=== PATIENT | female | born 1970 | race Caucasian/White ===

== ENCOUNTER 2020-10-10 11:35 | Inpatient (IN) ==
[2020-10-10] MEDS ORDERED: Aspirin 81 MG TAB.CHEW PO ONE (11:43)
[2020-10-10] MEDS ORDERED: *HR* FentaNYL (PF) 100 MCG/2 ML VIAL IVP ONE (11:49)
[2020-10-10] MEDS ORDERED: 0.9 % Sodium Chloride 1,000 ML IVC ONE ×2 (11:49→13:54)
[2020-10-10] MEDS ORDERED: Ondansetron 4 MG/2 ML VIAL IVP ONE (11:49)
[2020-10-10 12:28] LABS: Basophils % 0.2 %; Hematocrit 42.1 % (35.3-44.9); Immature Granulocytes % 2.5 % (0-4); Lymphocytes # 0.4 K/mcL (0.6-4.6); Lymphocytes % 4.6 %; Mean Corpuscular HGB Conc 33.3 g/dL (31.6-35.5); Mean Corpuscular Hemoglobin 31.7 pg (28.0-33.3); Mean Corpuscular Volume 95.5 fL (83.0-100.0); Mean Platelet Volume 9.6 fL (9.4-12.4); Monocytes % 11.6 %; Neutrophils # 6.9 K/mcL (1.6-8.9); Platelet Count 147 K/mcL (140-400); Red Blood Count 4.41 M/mcL (3.82-4.97); Red Cell Distribution Width 13.2 % (11.5-14.5); Segmented Neutrophils % 81.1 %; White Blood Count 8.5 K/mcL (4.3-11.1)
[2020-10-10 12:35] LABS: INR 0.9; Prothrombin Time 10.9 Seconds (9.4-12.1)
[2020-10-10 12:56] LABS: Alanine Aminotransferase 14 Units/L (7-52); Albumin 3.6 g/dL (3.5-5.7); Albumin/Globulin Ratio 1.2 (1.1-2.2); Alkaline Phosphatase 145 Units/L (34-104); Aspartate Amino Transferase 39 Units/L (13-39); BUN/Creatinine Ratio 12 (6-26); Bilirubin,Direct 0.2 mg/dL (0.0-0.2); Bilirubin,Indirect 0.4 mg/dL (0.0-1.0); Bilirubin,Total 0.6 mg/dL (0.3-1.0); Blood Urea Nitrogen 81 mg/dL (6-20); Calcium 7.8 mg/dL (8.6-10.3); Carbon Dioxide 9 mEq/L (23-29); Chloride 95 mEq/L (98-107); Creatine Kinase 47 Units/L (30-223); Glucose 85 mg/dL (70-105); Lipase 84 Units/L (11-82); Osmolality,Calculated 290 (280-300); Potassium 5.4 mEq/L (3.5-5.1); Sodium 128 mEq/L (136-145); Total Protein 6.6 g/dL (6.4-8.9); Troponin I < 0.03 ng/mL (< 0.04); eGFR For African Americans 8 (> 60); eGFR For Non-African Americans 6 (> 60)
[2020-10-10] MEDS ORDERED: Isovue-370 500 ML BOTTLE IVP ONE (13:47)
[2020-10-10] MEDS ORDERED: Vancomycin 1,250 MG/262.5 ML IV.SOLN IVPB STA (13:58)
[2020-10-10] MEDS ORDERED: Piperacillin/Tazobactam 3.375 GM in 0.9 % Sodium Chloride Mini Bag 100 ML IVPB STA (13:58)
[2020-10-10] MEDS ORDERED: *HR* Heparin 5,000 UNIT/ML VIAL IVP PRN ×2 (13:59)
[2020-10-10] MEDS ORDERED: *HR* Heparin 5,000 UNIT/ML VIAL IVP ONE (13:59)
[2020-10-10] MEDS ORDERED: Heparin 25,000UNIT/250ML 1/2NS 25,000 UNIT/250 ML IV.SOLN IVC SCH (14:00)
[2020-10-10] MEDS ORDERED: Vancomycin (wt based) 1,000 MG VIAL IVPB SCH (14:00)
[2020-10-10] MEDS ORDERED: 0.9 % Sodium Chloride 1,000 ML IVC SCH (14:00)
[2020-10-10] MEDS ORDERED: Piperacillin/Tazobactam 3.375 GM in Water for inj. (sterile) 20 ML IVP STA (14:09)
[2020-10-10] MEDS ORDERED: Sodium Bicarbonate 150 MEQ in D5% in Water 1,000 ML IVC SCH ×2 (15:15→21:54)
[2020-10-10 15:19] LABS: Heparin anti-factor XA UFH 0.04 IU/mL (0.30-0.70)
[2020-10-10 15:20] LABS: Prothrombin Time 11.2 Seconds (9.4-12.1)
[2020-10-10] MEDS ORDERED: Naloxone 0.4 MG/ML INJ IVP PRN (16:30)
[2020-10-10 16:59] LABS: Adenovirus Not Detected (Not Detect); Coronavirus 229E Not Detected (Not Detect); Coronavirus HKU1 Not Detected (Not Detect); Coronavirus NL63 Not Detected (Not Detect); Coronavirus OC43 Not Detected (Not Detect); Human Metapneumovirus Not Detected (Not Detect); Human Rhinovirus/Enterovirus Not Detected (Not Detect); Influenza A Subtype 2009 H1 Not Detected (Not Detect)
[2020-10-10 17:00] LABS: Bordetella Pertussis Not Detected (Not Detect); Chlamydophila pneumoniae Not Detected (Not Detect); Influenza B Not Detected (Not Detect); Mycoplasma pneumoniae Not Detected (Not Detect); Parainfluenza Virus 1 Not Detected (Not Detect); Parainfluenza Virus 2 Not Detected (Not Detect); Parainfluenza Virus 3 Not Detected (Not Detect); Parainfluenza Virus 4 Not Detected (Not Detect); Respiratory Syncytial Virus Not Detected (Not Detect)
[2020-10-10 17:03] LABS: SARS-CoV-2 DETECTED (Not Detect)
[2020-10-10] MEDS ORDERED: *HR* HYDROcodone/Acet 5/325 mg TABLET PO PRN (19:41)
[2020-10-10] MEDS ORDERED: *HR* OxyCODONE Immed Rel 5 MG TABLET PO PRN (19:41)
[2020-10-10] MEDS ORDERED: Acetaminophen 325 MG TABLET PO PRN (19:41)
[2020-10-10] MEDS: *HR* Heparin 5,000 UNIT/ML VIAL SQ SCH (20:08)
[2020-10-10] MEDS ORDERED: Ondansetron 4 MG/2 ML VIAL IVP PRN (21:56)
[2020-10-10] MEDS: Dexamethasone Sodium Phos/PF 10 MG/ML VIAL IVP SCH (22:07)
[2020-10-11 00:45] LABS: Immature Granulocytes % 1.9 % (0-4); Lymphocytes % 3.7 %; Mean Corpuscular Hemoglobin 31.8 pg (28.0-33.3); Mean Corpuscular Volume 90.9 fL (83.0-100.0); Mean Platelet Volume 9.6 fL (9.4-12.4); Monocytes % 6.4 %; Platelet Count 145 K/mcL (140-400); Red Blood Count 3.52 M/mcL (3.82-4.97); Red Cell Distribution Width 13.2 % (11.5-14.5); Segmented Neutrophils % 87.7 %
[2020-10-11 00:46] LABS: Basophils % 0.3 %; Lymphocytes # 0.3 K/mcL (0.6-4.6); Monocytes # 0.6 K/mcL (0.0-1.3); Neutrophils # 7.9 K/mcL (1.6-8.9); Nucleated Red Blood Cells 0.3 /100 WBC (0)
[2020-10-11 00:48] LABS: Calcium 6.6 mg/dL (8.6-10.3); Hemoglobin 11.2 g/dL (11.5-15.4); Potassium 5.2 mEq/L (3.5-5.1)
[2020-10-11] MEDS: *HR* OxyCODONE Immed Rel 5 MG TABLET PO PRN ×3 (03:50→20:03)
[2020-10-11] MEDS: *HR* Heparin 5,000 UNIT/ML VIAL SQ SCH ×2 (05:02→18:33)
[2020-10-11] MEDS: Piperacillin/Tazobactam 3.375 GM in 0.9 % Sodium Chloride Mini Bag 100 ML IVPB SCH ×2 (05:03→18:33)
[2020-10-11] MEDS: Sodium Bicarbonate 150 MEQ in D5% in Water 1,000 ML IVC SCH ×2 (05:23→20:04)
[2020-10-11] MEDS: Dexamethasone Sodium Phos/PF 10 MG/ML VIAL IVP SCH (09:15)
[2020-10-11] MEDS ORDERED: 0.9 % Sodium Chloride 250 ML IVC PRN (09:54)
[2020-10-11] MEDS ORDERED: *HR* Heparin 10,000 UNIT/10 ML VIAL IV PRN (09:54)
[2020-10-11] MEDS ORDERED: 0.9 % Sodium Chloride 1,000 ML PRIME SCH (10:00)
[2020-10-11 11:12] LABS: Hepatitis B Surface Antibody < 3.10 mIU/mL
[2020-10-11 11:24] LABS: Hepatitis B Surface Antigen Nonreactive (Nonreactive)
[2020-10-11] MEDS ORDERED: Heparin 1,000 UNITS/500 mL 500 ML ONE (12:51)
[2020-10-11] MEDS ORDERED: Lidocaine/EPI 1:100k 1% 50 ML VIAL ONE (12:51)
[2020-10-11] MEDS ORDERED: *HR* Heparin 5,000 UNIT/ML VIAL ONE (14:27)
[2020-10-11] MEDS: *HR* HYDROcodone/Acet 5/325 mg TABLET PO PRN (14:45)
[2020-10-11] MEDS ORDERED: Acetaminophen/Butalbital/CaffeineTABLET PO PRN (16:54)
[2020-10-11 19:09] LABS: Mean Corpuscular HGB Conc 35.7 g/dL (31.6-35.5); Mean Corpuscular Hemoglobin 31.6 pg (28.0-33.3); Mean Corpuscular Volume 88.6 fL (83.0-100.0); Mean Platelet Volume 9.5 fL (9.4-12.4); Platelet Count 147 K/mcL (140-400); Red Blood Count 3.16 M/mcL (3.82-4.97); Red Cell Distribution Width 12.9 % (11.5-14.5); White Blood Count 9.7 K/mcL (4.3-11.1)
[2020-10-11 19:38] LABS: Lymphocytes # 0.2 K/mcL (0.6-4.6); Monocytes # 0.6 K/mcL (0.0-1.3); Neutrophils # 8.9 K/mcL (1.6-8.9); Platelet Estimate Normal (Normal); Toxic Granulation Present (Not Present)
[2020-10-11] MEDS: rOPINIRole 1 MG TABLET PO SCH (20:03)
[2020-10-11] MEDS: Metoprolol XL (24 HR) Succ 25 MG TAB.ER.24H PO SCH (20:05)
[2020-10-12] MEDS: Ondansetron 4 MG/2 ML VIAL IVP PRN (00:05)
[2020-10-12 02:08] LABS: Basophils # 0.1 K/mcL (0.0-0.2); Basophils % 0.4 %; Hematocrit 32.8 % (35.3-44.9); Hemoglobin 11.4 g/dL (11.5-15.4); Immature Granulocytes % 2.1 % (0-4); Lymphocytes # 0.4 K/mcL (0.6-4.6); Lymphocytes % 3.3 %; Mean Corpuscular HGB Conc 34.8 g/dL (31.6-35.5); Mean Corpuscular Volume 89.1 fL (83.0-100.0); Mean Platelet Volume 9.3 fL (9.4-12.4); Monocytes # 0.5 K/mcL (0.0-1.3); Monocytes % 4.3 %; Platelet Count 151 K/mcL (140-400); Red Blood Count 3.68 M/mcL (3.82-4.97); Segmented Neutrophils % 89.9 %; White Blood Count 11.5 K/mcL (4.3-11.1)
[2020-10-12 02:16] LABS: Neutrophils # 10.3 K/mcL (1.6-8.9)
[2020-10-12 02:55] LABS: Platelet Estimate Normal (Normal)
[2020-10-12] MEDS: *HR* Heparin 5,000 UNIT/ML VIAL SQ SCH ×3 (05:37→23:21)
[2020-10-12] MEDS: Piperacillin/Tazobactam 3.375 GM in 0.9 % Sodium Chloride Mini Bag 100 ML IVPB SCH ×2 (05:37→18:27)
[2020-10-12 07:47] LABS: Calcium 6.9 mg/dL (8.6-10.3); Potassium 3.6 mEq/L (3.5-5.1)
[2020-10-12] MEDS: Dexamethasone Sodium Phos/PF 10 MG/ML VIAL IVP SCH (08:31)
[2020-10-12] MEDS: EXEMESTANE 25 MG PO SCH (08:32)
[2020-10-12] MEDS: Loratadine 10 MG TABLET PO SCH (08:32)
[2020-10-12] MEDS ORDERED: *HR* LORazepam 2 MG/ML VIAL ONE ×2 (10:55→11:16)
[2020-10-12] MEDS: *HR* LORazepam 2 MG/ML VIAL IVP ONE ×2 (11:00→12:58)
[2020-10-12 11:11] LABS: ABG Base Excess 5 mEq/L (-2 to 3); ABG HCO3 30 mEq/L (21-27); ABG Oxygen Saturation 79 % (95-98); ABG PCO2 44 mmHg (35-45); ABG PH 7.44 pH Units (7.32-7.45); ABG PO2 42 mmHg (85-104); ABG TCO2 31 mEq/L (20-26)
[2020-10-12] MEDS ORDERED: *HR* LORazepam 2 MG/ML VIAL IVP ONE (11:15)
[2020-10-12] MEDS ORDERED: Perflutren Lipid Microsphere 1.3 ML in 0.9 % Sodium Chloride 8.7 ML IVP PRN (11:18)
[2020-10-12] MEDS ORDERED: Morphine Sulfate 2 MG/ML SYRINGE IVP ONE (11:23)
[2020-10-12] MEDS ORDERED: Dexamethasone Sodium Phos/PF 10 MG/ML VIAL IVP ONE (11:45)
[2020-10-12] MEDS: Dexmedetomidine HCl 400 MCG/100 ML MLS IVC SCH ×2 (12:00→17:41)
[2020-10-12] MEDS ORDERED: 0.9 % Sodium Chloride 250 ML IVC PRN (13:20)
[2020-10-12] MEDS ORDERED: *HR* Heparin 10,000 UNIT/10 ML VIAL IV PRN (13:20)
[2020-10-12] MEDS: 0.9 % Sodium Chloride 1,000 ML IVC SCH (13:34)
[2020-10-12 13:36] LABS: ABG Base Excess 3 mEq/L (-2 to 3); ABG HCO3 27 mEq/L (21-27); ABG Oxygen Saturation 98 % (95-98); ABG PCO2 41 mmHg (35-45); ABG PH 7.43 pH Units (7.32-7.45); ABG PO2 107 mmHg (85-104); ABG TCO2 28 mEq/L (20-26); Blood Gas Pressure Support 8 cm H2O
[2020-10-12] MEDS: Pantoprazole 40 MG VIAL IVP SCH (13:44)
[2020-10-12] MEDS: Metoprolol XL (24 HR) Succ 25 MG TAB.ER.24H PO SCH (19:11)
[2020-10-12] MEDS: rOPINIRole 1 MG TABLET PO SCH (19:11)
[2020-10-13] MEDS: Dexmedetomidine HCl 400 MCG/100 ML MLS IVC SCH ×2 (02:30→13:39)
[2020-10-13 03:48] LABS: ABG Base Excess 6 mEq/L (-2 to 3); ABG HCO3 29 mEq/L (21-27); ABG Oxygen Saturation 94 % (95-98); ABG PCO2 37 mmHg (35-45); ABG PO2 63 mmHg (85-104); ABG TCO2 31 mEq/L (20-26)
[2020-10-13 03:57] LABS: Hematocrit 29.8 % (35.3-44.9); Hemoglobin 10.3 g/dL (11.5-15.4); Mean Corpuscular HGB Conc 34.6 g/dL (31.6-35.5); Mean Corpuscular Hemoglobin 31.1 pg (28.0-33.3); Platelet Count 175 K/mcL (140-400); Red Blood Count 3.31 M/mcL (3.82-4.97); Red Cell Distribution Width 13.6 % (11.5-14.5); White Blood Count 10.8 K/mcL (4.3-11.1)
[2020-10-13 04:11] LABS: Calcium 8.1 mg/dL (8.6-10.3); Potassium 3.9 mEq/L (3.5-5.1)
[2020-10-13 04:32] LABS: Monocytes # 0.4 K/mcL (0.0-1.3); Neutrophils # 10.4 K/mcL (1.6-8.9); Platelet Estimate Normal (Normal)
[2020-10-13] MEDS: Piperacillin/Tazobactam 3.375 GM in 0.9 % Sodium Chloride Mini Bag 100 ML IVPB SCH ×2 (05:09→17:16)
[2020-10-13] MEDS ORDERED: 0.9 % Sodium Chloride 250 ML IVC PRN (09:16)
[2020-10-13] MEDS ORDERED: *HR* Heparin 10,000 UNIT/10 ML VIAL IV PRN (09:16)
[2020-10-13] MEDS: EXEMESTANE 25 MG PO SCH (10:44)
[2020-10-13] MEDS: Loratadine 10 MG TABLET PO SCH (10:45)
[2020-10-13] MEDS: Pantoprazole 40 MG VIAL IVP SCH (11:01)
[2020-10-13] MEDS: *HR* Heparin 5,000 UNIT/ML VIAL SQ SCH ×3 (11:02→23:44)
[2020-10-13] MEDS: Dexamethasone Sodium Phos/PF 10 MG/ML VIAL IVP SCH (11:02)
[2020-10-13] MEDS: 0.9 % Sodium Chloride 1,000 ML IVC SCH (11:04)
[2020-10-13] MEDS ORDERED: Dextrose Gel 15 GM/37.5 ML TUBE PO PRN ×2 (11:31)
[2020-10-13] MEDS ORDERED: D5% in Water 1,000 ML IVC PRN (11:31)
[2020-10-13] MEDS ORDERED: *HR* Dextrose 50 % in Water (Vial) 50 ML VIAL IVP PRN (11:31)
[2020-10-13] MEDS: Insulin LISPRO 300 UNITS/3 ML VIAL SUBQ SCH ×3 (13:38→23:42)
[2020-10-13] MEDS: Furosemide 40 MG/4 ML VIAL IVP SCH ×3 (13:42→17:16)
[2020-10-13] MEDS: *HR* LORazepam 2 MG/ML VIAL IVP PRN (19:57)
[2020-10-13] MEDS: rOPINIRole 1 MG TABLET PO SCH (20:05)
[2020-10-13] MEDS: Metoprolol XL (24 HR) Succ 25 MG TAB.ER.24H PO SCH (20:05)
[2020-10-14 03:59] LABS: Basophils # 0.1 K/mcL (0.0-0.2); Basophils % 0.9 %; Eosinophils % 0.1 %; Hematocrit 30.3 % (35.3-44.9); Hemoglobin 10.3 g/dL (11.5-15.4); Immature Granulocytes % 7.8 % (0-4); Lymphocytes # 0.3 K/mcL (0.6-4.6); Lymphocytes % 2.4 %; Mean Corpuscular Hemoglobin 31.2 pg (28.0-33.3); Mean Corpuscular Volume 91.8 fL (83.0-100.0); Mean Platelet Volume 9.3 fL (9.4-12.4); Monocytes # 0.8 K/mcL (0.0-1.3); Monocytes % 6.1 %; Neutrophils # 11.1 K/mcL (1.6-8.9); Platelet Count 221 K/mcL (140-400); Red Cell Distribution Width 13.5 % (11.5-14.5); Segmented Neutrophils % 82.7 %; White Blood Count 13.4 K/mcL (4.3-11.1)
[2020-10-14 04:18] LABS: Calcium 8.3 mg/dL (8.6-10.3); Potassium 3.9 mEq/L (3.5-5.1)
[2020-10-14 04:30] LABS: Platelet Estimate Normal (Normal)
[2020-10-14] MEDS: Dexmedetomidine HCl 400 MCG/100 ML MLS IVC SCH ×3 (05:07→22:20)
[2020-10-14] MEDS: Piperacillin/Tazobactam 3.375 GM in 0.9 % Sodium Chloride Mini Bag 100 ML IVPB SCH ×2 (05:53→17:28)
[2020-10-14] MEDS: Insulin LISPRO 300 UNITS/3 ML VIAL SUBQ SCH ×3 (06:03→18:08)
[2020-10-14] MEDS: *HR* Heparin 5,000 UNIT/ML VIAL SQ SCH ×2 (07:33→18:08)
[2020-10-14] MEDS: Furosemide 40 MG/4 ML VIAL IVP SCH ×2 (07:33→12:03)
[2020-10-14] MEDS: Dexamethasone Sodium Phos/PF 10 MG/ML VIAL IVP SCH (07:34)
[2020-10-14] MEDS: Pantoprazole 40 MG VIAL IVP SCH ×2 (07:34→19:38)
[2020-10-14] MEDS: Loratadine 10 MG TABLET PO SCH (07:36)
[2020-10-14] MEDS: EXEMESTANE 25 MG PO SCH (07:36)
[2020-10-14] MEDS: *HR* LORazepam 2 MG/ML VIAL IVP PRN ×2 (08:50→20:47)
[2020-10-14] MEDS ORDERED: 0.9 % Sodium Chloride 250 ML IVC PRN (11:29)
[2020-10-14] MEDS ORDERED: *HR* Heparin 10,000 UNIT/10 ML VIAL IV PRN (11:29)
[2020-10-14 14:39] LABS: Bacteria,Urine Few per hpf (None-Few); Bilirubin,Urine Negative (Negative); Blood,Urine Trace (Negative); Clarity,Urine Clear (Clear); Color,Urine Colorless (Yellow); Glucose,Urine (UA) Normal (Normal); Ketones,Urine Negative (Negative); Leukocyte Esterase,Urine Negative (Negative); Mucus,Urine Few per lpf (None-Few); Nitrite,Urine Negative (Negative); PH,Urine 6.5 pH Units (5.0-8.0); Protein,Urine Trace mg/dL (Neg-Trace); RBC,Urine 0-3 per hpf (0-3); Squamous Epithelial Cell,Urine Few per hpf (None-Few); Urobilinogen,Urine Normal (Normal); WBC,Urine 0-3 per hpf (0-3)
[2020-10-14] MEDS ORDERED: HydrOXYzine 100 MG/2 ML VIAL IM PRN (14:55)
[2020-10-14] MEDS: Albumin 25% 25gram/100mL 25 GM/100 ML IV.SOLN IVPB PRN (15:17)
[2020-10-14] MEDS: MetroNIDAZOLE 500 MG/100 ML 500 MG/100 ML BAG IVPB SCH (17:28)
[2020-10-14 18:30] LABS: Hematocrit 30.6 % (35.3-44.9); Hemoglobin 10.3 g/dL (11.5-15.4)
[2020-10-14] MEDS: Metoprolol XL (24 HR) Succ 25 MG TAB.ER.24H PO SCH (19:41)
[2020-10-14] MEDS: rOPINIRole 1 MG TABLET PO SCH (19:41)
[2020-10-14] MEDS ORDERED: Vancomycin 1 EACH in 0.9 % Sodium Chloride 250 ML IVPB PRN (20:00)
[2020-10-15] MEDS: MetroNIDAZOLE 500 MG/100 ML 500 MG/100 ML BAG IVPB SCH (00:36)
[2020-10-15] MEDS: Insulin LISPRO 300 UNITS/3 ML VIAL SUBQ SCH ×5 (00:36→23:49)
[2020-10-15] MEDS: *HR* Heparin 5,000 UNIT/ML VIAL SQ SCH ×4 (00:36→23:36)
[2020-10-15 03:49] LABS: Hemoglobin 9.8 g/dL (11.5-15.4); Mean Corpuscular HGB Conc 33.8 g/dL (31.6-35.5); Mean Corpuscular Hemoglobin 31.1 pg (28.0-33.3); Mean Corpuscular Volume 92.1 fL (83.0-100.0); Mean Platelet Volume 9.2 fL (9.4-12.4); Platelet Count 269 K/mcL (140-400); Red Blood Count 3.15 M/mcL (3.82-4.97); Red Cell Distribution Width 13.2 % (11.5-14.5); White Blood Count 15.6 K/mcL (4.3-11.1)
[2020-10-15 04:05] LABS: Magnesium 1.7 mg/dL (1.6-2.6); Phosphorous 2.4 mg/dL (2.7-4.5)
[2020-10-15] MEDS: Dexmedetomidine HCl 400 MCG/100 ML MLS IVC SCH ×4 (04:26→23:48)
[2020-10-15 04:29] LABS: ABG Base Excess 2 mEq/L (-2 to 3); ABG HCO3 26 mEq/L (21-27); ABG Oxygen Saturation 95 % (95-98); ABG PCO2 37 mmHg (35-45); ABG PH 7.46 pH Units (7.32-7.45); ABG PO2 72 mmHg (85-104); ABG TCO2 27 mEq/L (20-26); Blood Gas Modality avaps; Blood Gas VT 480 cc
[2020-10-15 05:07] LABS: Calcium 9.1 mg/dL (8.6-10.3); Potassium 3.5 mEq/L (3.5-5.1)
[2020-10-15] MEDS: Piperacillin/Tazobactam 3.375 GM in 0.9 % Sodium Chloride Mini Bag 100 ML IVPB SCH ×2 (05:49→17:50)
[2020-10-15] MEDS: Dexamethasone Sodium Phos/PF 10 MG/ML VIAL IVP SCH (07:59)
[2020-10-15] MEDS: Pantoprazole 40 MG VIAL IVP SCH ×2 (07:59→19:48)
[2020-10-15] MEDS: Cholecalciferol (D-3) 1,000 UNIT (25MCG) TABLET PO SCH (12:07)
[2020-10-15] MEDS: EXEMESTANE 25 MG PO SCH (12:07)
[2020-10-15] MEDS: Loratadine 10 MG TABLET PO SCH (12:07)
[2020-10-15] MEDS: BuPROPion XL (24 HR) 150 MG TABLET PO SCH (16:33)
[2020-10-15] MEDS: Furosemide 40 MG/4 ML VIAL IVP SCH (19:33)
[2020-10-15] MEDS: Metoprolol XL (24 HR) Succ 25 MG TAB.ER.24H PO SCH (19:48)
[2020-10-15] MEDS: rOPINIRole 1 MG TABLET PO SCH (19:48)
[2020-10-15] MEDS: hydrOXYzine pamoate 25 MG CAPSULE PO PRN (21:49)
[2020-10-16 04:05] LABS: Hemoglobin 8.7 g/dL (11.5-15.4); Mean Corpuscular HGB Conc 33.5 g/dL (31.6-35.5); Mean Corpuscular Hemoglobin 31.1 pg (28.0-33.3); Mean Corpuscular Volume 92.9 fL (83.0-100.0); Mean Platelet Volume 9.4 fL (9.4-12.4); Platelet Count 247 K/mcL (140-400); White Blood Count 12.1 K/mcL (4.3-11.1)
[2020-10-16 04:22] LABS: Calcium 7.4 mg/dL (8.6-10.3); Magnesium 1.4 mg/dL (1.6-2.6); Potassium 3.2 mEq/L (3.5-5.1)
[2020-10-16 04:28] LABS: Lymphocytes # 0.7 K/mcL (0.6-4.6); Neutrophils # 10.9 K/mcL (1.6-8.9); Platelet Estimate Normal (Normal); Toxic Granulation Present (Not Present)
[2020-10-16] MEDS: Piperacillin/Tazobactam 3.375 GM in 0.9 % Sodium Chloride Mini Bag 100 ML IVPB SCH ×2 (05:28→17:27)
[2020-10-16] MEDS: Insulin LISPRO 300 UNITS/3 ML VIAL SUBQ SCH ×4 (05:33→23:41)
[2020-10-16] MEDS: Pantoprazole 40 MG VIAL IVP SCH ×2 (05:50→18:10)
[2020-10-16] MEDS: Dexmedetomidine HCl 400 MCG/100 ML MLS IVC SCH ×2 (06:31→15:15)
[2020-10-16] MEDS ORDERED: 0.9 % Sodium Chloride 250 ML IVC PRN (07:32)
[2020-10-16] MEDS ORDERED: *HR* Heparin 10,000 UNIT/10 ML VIAL IV PRN (07:32)
[2020-10-16] MEDS ORDERED: Albumin 25% 25gram/100mL 25 GM/100 ML IV.SOLN ONE (08:07)
[2020-10-16] MEDS: *HR* Heparin 5,000 UNIT/ML VIAL SQ SCH ×3 (08:18→23:19)
[2020-10-16] MEDS: Cholecalciferol (D-3) 1,000 UNIT (25MCG) TABLET PO SCH (08:19)
[2020-10-16] MEDS: Loratadine 10 MG TABLET PO SCH (08:19)
[2020-10-16] MEDS: BuPROPion XL (24 HR) 150 MG TABLET PO SCH (08:19)
[2020-10-16] MEDS: Dexamethasone Sodium Phos/PF 10 MG/ML VIAL IVP SCH (08:25)
[2020-10-16] MEDS: Albumin 25% 25gram/100mL 25 GM/100 ML IV.SOLN IVPB PRN (10:32)
[2020-10-16] MEDS ORDERED: Pregabalin 75 MG CAPSULE PO ONE (11:30)
[2020-10-16] MEDS ORDERED: traZODone 50 MG TABLET PO ONE (11:30)
[2020-10-16 16:42] LABS: Magnesium 1.8 mg/dL (1.6-2.6); Phosphorous 2.6 mg/dL (2.7-4.5); Potassium 3.6 mEq/L (3.5-5.1)
[2020-10-16] MEDS ORDERED: Potassium Phosphate 44 MEQ in 0.9 % Sodium Chloride 250 ML IVPB ONE (17:26)
[2020-10-16] MEDS: Calcium Gluconate 1gm/50mL 1 GM/50 ML BAG IVPB SCH ×2 (17:36→18:15)
[2020-10-16] MEDS: rOPINIRole 1 MG TABLET PO SCH (19:43)
[2020-10-16] MEDS: traZODone 50 MG TABLET PO SCH (19:43)
[2020-10-16] MEDS: Metoprolol XL (24 HR) Succ 25 MG TAB.ER.24H PO SCH (19:43)
[2020-10-17] MEDS: Dexmedetomidine HCl 400 MCG/100 ML MLS IVC SCH ×3 (03:35→22:45)
[2020-10-17 03:41] LABS: Hematocrit 26.4 % (35.3-44.9); Mean Corpuscular HGB Conc 34.1 g/dL (31.6-35.5); Mean Corpuscular Hemoglobin 31.4 pg (28.0-33.3); Mean Platelet Volume 9.6 fL (9.4-12.4); Platelet Count 285 K/mcL (140-400); Red Blood Count 2.87 M/mcL (3.82-4.97); Red Cell Distribution Width 13.1 % (11.5-14.5); White Blood Count 14.6 K/mcL (4.3-11.1)
[2020-10-17 04:06] LABS: Calcium 8.5 mg/dL (8.6-10.3); Phosphorous 5.6 mg/dL (2.7-4.5)
[2020-10-17 04:09] LABS: Anisocytosis 1+ (Not Present); Lymphocytes # 0.6 K/mcL (0.6-4.6); Macrocytosis Present (Not Present); Monocytes # 0.3 K/mcL (0.0-1.3); Neutrophils # 12.9 K/mcL (1.6-8.9); Platelet Estimate Normal (Normal)
[2020-10-17] MEDS ORDERED: Calcium Gluconate 1gm/50mL 1 GM/50 ML BAG IVPB PRN (05:15)
[2020-10-17] MEDS: Piperacillin/Tazobactam 3.375 GM in 0.9 % Sodium Chloride Mini Bag 100 ML IVPB SCH ×2 (06:02→18:29)
[2020-10-17] MEDS: Pantoprazole 40 MG VIAL IVP SCH ×2 (06:03→18:30)
[2020-10-17] MEDS: Insulin LISPRO 300 UNITS/3 ML VIAL SUBQ SCH ×4 (06:33→23:39)
[2020-10-17] MEDS: BuPROPion XL (24 HR) 150 MG TABLET PO SCH (09:01)
[2020-10-17] MEDS: Dexamethasone Sodium Phos/PF 10 MG/ML VIAL IVP SCH (09:01)
[2020-10-17] MEDS: Cholecalciferol (D-3) 1,000 UNIT (25MCG) TABLET PO SCH (09:02)
[2020-10-17] MEDS: Pregabalin 75 MG CAPSULE PO SCH (09:02)
[2020-10-17] MEDS: Loratadine 10 MG TABLET PO SCH (09:02)
[2020-10-17] MEDS: *HR* Heparin 5,000 UNIT/ML VIAL SQ SCH ×3 (09:02→23:16)
[2020-10-17 13:27] LABS: VBG Ionized Calcium 1.12 mmol/L (1.15-1.35)
[2020-10-17 13:27] LABS: VBG Ionized Calcium 1.14 mmol/L (1.15-1.35)
[2020-10-17 13:28] LABS: VBG Ionized Calcium 1.06 mmol/L (1.15-1.35)
[2020-10-17] MEDS ORDERED: Baclofen 10 MG TABLET PO PRN (14:02)
[2020-10-17] MEDS: rOPINIRole 1 MG TABLET PO SCH (19:37)
[2020-10-17] MEDS: Metoprolol XL (24 HR) Succ 25 MG TAB.ER.24H PO SCH (19:37)
[2020-10-17] MEDS: traZODone 50 MG TABLET PO SCH (19:37)
[2020-10-18 03:57] LABS: VBG Ionized Calcium 1.12 mmol/L (1.15-1.35)
[2020-10-18 04:03] LABS: Hematocrit 26.6 % (35.3-44.9); Hemoglobin 8.6 g/dL (11.5-15.4); Lymphocytes # 0.4 K/mcL (0.6-4.6); Mean Corpuscular HGB Conc 32.3 g/dL (31.6-35.5); Mean Corpuscular Hemoglobin 30.5 pg (28.0-33.3); Mean Corpuscular Volume 94.3 fL (83.0-100.0); Mean Platelet Volume 9.7 fL (9.4-12.4); Platelet Count 329 K/mcL (140-400); Red Blood Count 2.82 M/mcL (3.82-4.97); Red Cell Distribution Width 13.1 % (11.5-14.5); White Blood Count 18.7 K/mcL (4.3-11.1)
[2020-10-18 04:21] LABS: Calcium 8.5 mg/dL (8.6-10.3); Magnesium 1.8 mg/dL (1.6-2.6); Potassium 3.7 mEq/L (3.5-5.1)
[2020-10-18 04:33] LABS: Anisocytosis 1+ (Not Present); Monocytes # 0.8 K/mcL (0.0-1.3); Neutrophils # 15.3 K/mcL (1.6-8.9); Platelet Estimate Normal (Normal); Toxic Granulation Present (Not Present)
[2020-10-18] MEDS: Piperacillin/Tazobactam 3.375 GM in 0.9 % Sodium Chloride Mini Bag 100 ML IVPB SCH ×2 (05:14→17:10)
[2020-10-18] MEDS: Insulin LISPRO 300 UNITS/3 ML VIAL SUBQ SCH ×4 (06:01→23:48)
[2020-10-18] MEDS: Pantoprazole 40 MG VIAL IVP SCH ×2 (06:04→18:15)
[2020-10-18] MEDS ORDERED: *HR* LORazepam 2 MG/ML VIAL IVP ONE (06:08)
[2020-10-18] MEDS: *HR* Heparin 5,000 UNIT/ML VIAL SQ SCH ×3 (09:10→23:32)
[2020-10-18] MEDS: BuPROPion XL (24 HR) 150 MG TABLET PO SCH (09:11)
[2020-10-18] MEDS: Dexamethasone Sodium Phos/PF 10 MG/ML VIAL IVP SCH (09:11)
[2020-10-18] MEDS: Pregabalin 75 MG CAPSULE PO SCH (09:11)
[2020-10-18] MEDS: Cholecalciferol (D-3) 1,000 UNIT (25MCG) TABLET PO SCH (09:11)
[2020-10-18] MEDS: Loratadine 10 MG TABLET PO SCH (09:11)
[2020-10-18] MEDS: Dexmedetomidine HCl 400 MCG/100 ML MLS IVC SCH (13:47)
[2020-10-18 16:24] LABS: Potassium 4.4 mEq/L (3.5-5.1)
[2020-10-18] MEDS: rOPINIRole 1 MG TABLET PO SCH (19:30)
[2020-10-18] MEDS: *HR* HYDROcodone/Acet 5/325 mg TABLET PO PRN (19:30)
[2020-10-18] MEDS: traZODone 50 MG TABLET PO SCH (19:30)
[2020-10-18] MEDS: hydrOXYzine pamoate 25 MG CAPSULE PO PRN (19:30)
[2020-10-18] MEDS: Metoprolol XL (24 HR) Succ 25 MG TAB.ER.24H PO SCH (19:31)
[2020-10-19 04:05] LABS: VBG Ionized Calcium 1.14 mmol/L (1.15-1.35)
[2020-10-19 04:09] LABS: Hematocrit 25.3 % (35.3-44.9); Hemoglobin 8.3 g/dL (11.5-15.4); Mean Corpuscular HGB Conc 32.8 g/dL (31.6-35.5); Mean Corpuscular Hemoglobin 31.2 pg (28.0-33.3); Mean Corpuscular Volume 95.1 fL (83.0-100.0); Mean Platelet Volume 9.5 fL (9.4-12.4); Platelet Count 329 K/mcL (140-400); Red Blood Count 2.66 M/mcL (3.82-4.97); Red Cell Distribution Width 13.5 % (11.5-14.5); White Blood Count 17.9 K/mcL (4.3-11.1)
[2020-10-19 04:23] LABS: Calcium 8.3 mg/dL (8.6-10.3); Magnesium 2.6 mg/dL (1.6-2.6); Phosphorous 3.3 mg/dL (2.7-4.5); Potassium 4.2 mEq/L (3.5-5.1)
[2020-10-19 04:47] LABS: Lymphocytes # 1.8 K/mcL (0.6-4.6); Monocytes # 0.4 K/mcL (0.0-1.3); Neutrophils # 15.8 K/mcL (1.6-8.9); Platelet Estimate Normal (Normal)
[2020-10-19] MEDS: Insulin LISPRO 300 UNITS/3 ML VIAL SUBQ SCH ×4 (05:05→23:59)
[2020-10-19] MEDS: Piperacillin/Tazobactam 3.375 GM in 0.9 % Sodium Chloride Mini Bag 100 ML IVPB SCH ×2 (05:07→16:53)
[2020-10-19] MEDS: *HR* HYDROcodone/Acet 5/325 mg TABLET PO PRN ×2 (06:08→19:29)
[2020-10-19] MEDS: hydrOXYzine pamoate 25 MG CAPSULE PO PRN ×2 (06:08→19:29)
[2020-10-19] MEDS: Dexmedetomidine HCl 400 MCG/100 ML MLS IVC SCH (07:55)
[2020-10-19] MEDS: *HR* Heparin 5,000 UNIT/ML VIAL SQ SCH ×3 (07:58→23:58)
[2020-10-19] MEDS: Dexamethasone Sodium Phos/PF 10 MG/ML VIAL IVP SCH (07:58)
[2020-10-19] MEDS: Cholecalciferol (D-3) 1,000 UNIT (25MCG) TABLET PO SCH (07:58)
[2020-10-19] MEDS: Pantoprazole 40 MG VIAL IVP SCH ×2 (07:58→18:26)
[2020-10-19] MEDS: BuPROPion XL (24 HR) 150 MG TABLET PO SCH (07:58)
[2020-10-19] MEDS: Pregabalin 75 MG CAPSULE PO SCH (07:59)
[2020-10-19] MEDS: Loratadine 10 MG TABLET PO SCH (07:59)
[2020-10-19] MEDS ORDERED: Albumin 25% 25gram/100mL 25 GM/100 ML IV.SOLN IVPB ONE (08:40)
[2020-10-19] MEDS ORDERED: Furosemide 40 MG/4 ML VIAL IVP ONE (08:40)
[2020-10-19] MEDS: traZODone 50 MG TABLET PO SCH (19:29)
[2020-10-19] MEDS: rOPINIRole 1 MG TABLET PO SCH (19:29)
[2020-10-19] MEDS: Metoprolol XL (24 HR) Succ 25 MG TAB.ER.24H PO SCH (19:29)
[2020-10-20] MEDS: Dexmedetomidine HCl 400 MCG/100 ML MLS IVC SCH ×2 (03:05→17:46)
[2020-10-20 04:17] LABS: Basophils # 0.2 K/mcL (0.0-0.2); Basophils % 0.8 %; Eosinophils % 0.1 %; Hematocrit 26.7 % (35.3-44.9); Hemoglobin 8.8 g/dL (11.5-15.4); Immature Granulocytes % 7.9 % (0-4); Lymphocytes % 2.9 %; Mean Corpuscular Hemoglobin 31.1 pg (28.0-33.3); Mean Corpuscular Volume 94.3 fL (83.0-100.0); Mean Platelet Volume 9.3 fL (9.4-12.4); Monocytes # 1.1 K/mcL (0.0-1.3); Monocytes % 5.7 %; Neutrophils # 15.6 K/mcL (1.6-8.9); Platelet Count 377 K/mcL (140-400); Red Blood Count 2.83 M/mcL (3.82-4.97); Red Cell Distribution Width 13.3 % (11.5-14.5); Segmented Neutrophils % 82.6 %; White Blood Count 18.9 K/mcL (4.3-11.1)
[2020-10-20 04:23] LABS: Lymphocytes # 0.6 K/mcL (0.6-4.6)
[2020-10-20 04:36] LABS: Calcium 8.6 mg/dL (8.6-10.3); Magnesium 2.1 mg/dL (1.6-2.6); Phosphorous 3.2 mg/dL (2.7-4.5); Potassium 3.6 mEq/L (3.5-5.1)
[2020-10-20 04:49] LABS: Platelet Estimate Normal (Normal)
[2020-10-20] MEDS: Piperacillin/Tazobactam 3.375 GM in 0.9 % Sodium Chloride Mini Bag 100 ML IVPB SCH (05:29)
[2020-10-20] MEDS: Insulin LISPRO 300 UNITS/3 ML VIAL SUBQ SCH ×3 (05:30→17:05)
[2020-10-20] MEDS: Potassium Chloride 40 MEQ/200 ML BAG IVPB PRN (06:16)
[2020-10-20] MEDS: Pantoprazole 40 MG VIAL IVP SCH (08:33)
[2020-10-20] MEDS: Cholecalciferol (D-3) 1,000 UNIT (25MCG) TABLET PO SCH (08:33)
[2020-10-20] MEDS: Dexamethasone Sodium Phos/PF 10 MG/ML VIAL IVP SCH (08:33)
[2020-10-20] MEDS: *HR* Heparin 5,000 UNIT/ML VIAL SQ SCH ×3 (08:33→23:29)
[2020-10-20] MEDS: BuPROPion XL (24 HR) 150 MG TABLET PO SCH (08:33)
[2020-10-20] MEDS: Pregabalin 75 MG CAPSULE PO SCH (08:33)
[2020-10-20] MEDS: Loratadine 10 MG TABLET PO SCH (08:33)
[2020-10-20] MEDS: hydrOXYzine pamoate 25 MG CAPSULE PO PRN ×2 (08:49→16:56)
[2020-10-20] MEDS ORDERED: Furosemide 40 MG/4 ML VIAL IVP ONE (08:55)
[2020-10-20] MEDS ORDERED: Albumin 25% 25gram/100mL 25 GM/100 ML IV.SOLN IVPB ONE (09:30)
[2020-10-20] MEDS ORDERED: Furosemide 80 MG in 0.9 % Sodium Chloride 50 ML IV ONE (11:30)
[2020-10-20 15:40] LABS: Calcium 9.3 mg/dL (8.6-10.3)
[2020-10-20] MEDS: *HR* HYDROcodone/Acet 5/325 mg TABLET PO PRN (16:56)
[2020-10-20] MEDS: traZODone 50 MG TABLET PO SCH (20:14)
[2020-10-20] MEDS: rOPINIRole 1 MG TABLET PO SCH (20:14)
[2020-10-20] MEDS: Metoprolol XL (24 HR) Succ 25 MG TAB.ER.24H PO SCH (20:14)
[2020-10-21] MEDS: Insulin LISPRO 300 UNITS/3 ML VIAL SUBQ SCH ×4 (00:16→17:20)
[2020-10-21] MEDS: hydrOXYzine pamoate 25 MG CAPSULE PO PRN ×2 (01:25→19:39)
[2020-10-21 03:33] LABS: VBG Ionized Calcium 1.14 mmol/L (1.15-1.35)
[2020-10-21 03:37] LABS: Hemoglobin 8.8 g/dL (11.5-15.4); Lymphocytes # 0.6 K/mcL (0.6-4.6); Mean Corpuscular HGB Conc 32.6 g/dL (31.6-35.5); Mean Corpuscular Hemoglobin 30.9 pg (28.0-33.3); Mean Corpuscular Volume 94.7 fL (83.0-100.0); Mean Platelet Volume 9.3 fL (9.4-12.4); Platelet Count 379 K/mcL (140-400); Red Blood Count 2.85 M/mcL (3.82-4.97); Red Cell Distribution Width 13.4 % (11.5-14.5); White Blood Count 16.1 K/mcL (4.3-11.1)
[2020-10-21 03:49] LABS: Calcium 9.2 mg/dL (8.6-10.3); Magnesium 1.9 mg/dL (1.6-2.6); Potassium 3.8 mEq/L (3.5-5.1)
[2020-10-21 03:58] LABS: Anisocytosis 1+ (Not Present); Monocytes # 0.3 K/mcL (0.0-1.3); Neutrophils # 13.9 K/mcL (1.6-8.9); Platelet Estimate Normal (Normal)
[2020-10-21] MEDS: Potassium Chloride 40 MEQ/200 ML BAG IVPB PRN ×2 (04:34→06:27)
[2020-10-21] MEDS: Dexmedetomidine HCl 400 MCG/100 ML MLS IVC SCH ×2 (04:34→18:36)
[2020-10-21 07:06] LABS: Phosphorous 3.9 mg/dL (2.7-4.5)
[2020-10-21] MEDS: Dexamethasone Sodium Phos/PF 10 MG/ML VIAL IVP SCH (08:37)
[2020-10-21] MEDS: Cholecalciferol (D-3) 1,000 UNIT (25MCG) TABLET PO SCH (08:37)
[2020-10-21] MEDS: *HR* Heparin 5,000 UNIT/ML VIAL SQ SCH ×2 (08:37→16:59)
[2020-10-21] MEDS: BuPROPion XL (24 HR) 150 MG TABLET PO SCH (08:38)
[2020-10-21] MEDS: Loratadine 10 MG TABLET PO SCH (08:38)
[2020-10-21] MEDS: Pregabalin 75 MG CAPSULE PO SCH (08:38)
[2020-10-21] MEDS ORDERED: traZODone 50 MG TABLET PO ONE (10:31)
[2020-10-21] MEDS: Baclofen 10 MG TABLET PO SCH (10:58)
[2020-10-21] MEDS ORDERED: Albumin 25% 25gram/100mL 25 GM/100 ML IV.SOLN IVPB ONE (11:06)
[2020-10-21] MEDS ORDERED: Furosemide 80 MG in 0.9 % Sodium Chloride 50 ML IVPB ONE (11:08)
[2020-10-21] MEDS: *HR* HYDROcodone/Acet 5/325 mg TABLET PO PRN (19:38)
[2020-10-21] MEDS: rOPINIRole 1 MG TABLET PO SCH (19:38)
[2020-10-21] MEDS: traZODone 50 MG TABLET PO SCH (19:39)
[2020-10-21] MEDS: Metoprolol XL (24 HR) Succ 25 MG TAB.ER.24H PO SCH (19:39)
[2020-10-21] MEDS: Ondansetron 4 MG/2 ML VIAL IVP PRN (19:40)
[2020-10-22] MEDS: *HR* Heparin 5,000 UNIT/ML VIAL SQ SCH ×4 (00:03→23:56)
[2020-10-22] MEDS: Insulin LISPRO 300 UNITS/3 ML VIAL SUBQ SCH ×5 (00:03→23:56)
[2020-10-22 03:53] LABS: VBG Ionized Calcium 1.18 mmol/L (1.15-1.35)
[2020-10-22 03:54] LABS: Hematocrit 28.2 % (35.3-44.9); Hemoglobin 9.2 g/dL (11.5-15.4); Mean Corpuscular HGB Conc 32.6 g/dL (31.6-35.5); Mean Corpuscular Hemoglobin 31.4 pg (28.0-33.3); Mean Corpuscular Volume 96.2 fL (83.0-100.0); Mean Platelet Volume 9.1 fL (9.4-12.4); Platelet Count 376 K/mcL (140-400); Red Blood Count 2.93 M/mcL (3.82-4.97); Red Cell Distribution Width 13.7 % (11.5-14.5); White Blood Count 13.3 K/mcL (4.3-11.1)
[2020-10-22 04:17] LABS: Calcium 9.9 mg/dL (8.6-10.3); Phosphorous 4.5 mg/dL (2.7-4.5)
[2020-10-22] MEDS: Dexamethasone Sodium Phos/PF 10 MG/ML VIAL IVP SCH (07:52)
[2020-10-22] MEDS: BuPROPion XL (24 HR) 150 MG TABLET PO SCH (07:53)
[2020-10-22] MEDS: Pregabalin 75 MG CAPSULE PO SCH (07:53)
[2020-10-22] MEDS: Cholecalciferol (D-3) 1,000 UNIT (25MCG) TABLET PO SCH (07:53)
[2020-10-22] MEDS: Baclofen 10 MG TABLET PO SCH (07:53)
[2020-10-22] MEDS: Loratadine 10 MG TABLET PO SCH (07:53)
[2020-10-22] MEDS: Dexmedetomidine HCl 400 MCG/100 ML MLS IVC SCH ×2 (11:16→20:12)
[2020-10-22] MEDS: Metoprolol XL (24 HR) Succ 25 MG TAB.ER.24H PO SCH (20:20)
[2020-10-22] MEDS: hydrOXYzine pamoate 25 MG CAPSULE PO PRN (20:20)
[2020-10-22] MEDS: traZODone 50 MG TABLET PO SCH (20:20)
[2020-10-22] MEDS: rOPINIRole 1 MG TABLET PO SCH (20:21)
[2020-10-23 05:11] LABS: Hematocrit 27.9 % (35.3-44.9); Hemoglobin 9.2 g/dL (11.5-15.4); Mean Corpuscular Hemoglobin 31.4 pg (28.0-33.3); Mean Corpuscular Volume 95.2 fL (83.0-100.0); Mean Platelet Volume 9.4 fL (9.4-12.4); Platelet Count 357 K/mcL (140-400); Red Blood Count 2.93 M/mcL (3.82-4.97); White Blood Count 13.7 K/mcL (4.3-11.1)
[2020-10-23 05:13] LABS: VBG Ionized Calcium 1.23 mmol/L (1.15-1.35)
[2020-10-23 05:52] LABS: Calcium 9.9 mg/dL (8.6-10.3); Magnesium 2.2 mg/dL (1.6-2.6); Potassium 4.2 mEq/L (3.5-5.1)
[2020-10-23] MEDS: Insulin LISPRO 300 UNITS/3 ML VIAL SUBQ SCH ×4 (06:07→23:56)
[2020-10-23] MEDS: Dexmedetomidine HCl 400 MCG/100 ML MLS IVC SCH ×2 (07:19→18:36)
[2020-10-23] MEDS: Albumin 25% 25gram/100mL 25 GM/100 ML IV.SOLN IVPB SCH (08:23)
[2020-10-23] MEDS: Dexamethasone Sodium Phos/PF 10 MG/ML VIAL IVP SCH (08:24)
[2020-10-23] MEDS: *HR* Heparin 5,000 UNIT/ML VIAL SQ SCH ×3 (08:27→23:56)
[2020-10-23] MEDS: Baclofen 10 MG TABLET PO SCH (08:28)
[2020-10-23] MEDS: Pregabalin 75 MG CAPSULE PO SCH (08:28)
[2020-10-23] MEDS: BuPROPion XL (24 HR) 150 MG TABLET PO SCH (08:28)
[2020-10-23] MEDS: Loratadine 10 MG TABLET PO SCH (08:29)
[2020-10-23] MEDS: Cholecalciferol (D-3) 1,000 UNIT (25MCG) TABLET PO SCH (08:29)
[2020-10-23] MEDS ORDERED: Furosemide 40 MG/4 ML VIAL IVP SCH (09:00)
[2020-10-23] MEDS: Furosemide 80 MG in 0.9 % Sodium Chloride 50 ML IVPB SCH (11:18)
[2020-10-23] MEDS: hydrOXYzine pamoate 25 MG CAPSULE PO PRN (21:23)
[2020-10-23] MEDS: traZODone 50 MG TABLET PO SCH (21:23)
[2020-10-23] MEDS: rOPINIRole 1 MG TABLET PO SCH (21:23)
[2020-10-23] MEDS: Metoprolol XL (24 HR) Succ 25 MG TAB.ER.24H PO SCH (21:23)
[2020-10-23] MEDS: *HR* HYDROcodone/Acet 5/325 mg TABLET PO PRN (21:23)
[2020-10-24] MEDS ORDERED: Chloraseptic Spray 177 ML BOTTLE MM PRN (03:34)
[2020-10-24 03:49] LABS: Hematocrit 27.5 % (35.3-44.9); Hemoglobin 9.1 g/dL (11.5-15.4); Mean Corpuscular HGB Conc 33.1 g/dL (31.6-35.5); Mean Corpuscular Hemoglobin 31.6 pg (28.0-33.3); Mean Corpuscular Volume 95.5 fL (83.0-100.0); Mean Platelet Volume 9.3 fL (9.4-12.4); Platelet Count 297 K/mcL (140-400); Red Blood Count 2.88 M/mcL (3.82-4.97); Red Cell Distribution Width 13.6 % (11.5-14.5); White Blood Count 11.9 K/mcL (4.3-11.1)
[2020-10-24 03:52] LABS: VBG Ionized Calcium 1.18 mmol/L (1.15-1.35)
[2020-10-24 04:08] LABS: Calcium 9.9 mg/dL (8.6-10.3); Magnesium 2.2 mg/dL (1.6-2.6); Phosphorous 5.1 mg/dL (2.7-4.5); Potassium 3.8 mEq/L (3.5-5.1)
[2020-10-24] MEDS: Dexmedetomidine HCl 400 MCG/100 ML MLS IVC SCH ×2 (04:45→13:29)
[2020-10-24] MEDS: Insulin LISPRO 300 UNITS/3 ML VIAL SUBQ SCH ×4 (06:12→23:37)
[2020-10-24] MEDS: Potassium Chloride 40 MEQ/200 ML BAG IVPB PRN (06:22)
[2020-10-24] MEDS: Loratadine 10 MG TABLET PO SCH (08:05)
[2020-10-24] MEDS: *HR* Heparin 5,000 UNIT/ML VIAL SQ SCH ×3 (08:05→23:36)
[2020-10-24] MEDS: Pregabalin 75 MG CAPSULE PO SCH (08:05)
[2020-10-24] MEDS: Dexamethasone Sodium Phos/PF 10 MG/ML VIAL IVP SCH (08:06)
[2020-10-24] MEDS: Cholecalciferol (D-3) 1,000 UNIT (25MCG) TABLET PO SCH (08:06)
[2020-10-24] MEDS: Baclofen 10 MG TABLET PO SCH (08:06)
[2020-10-24] MEDS: BuPROPion XL (24 HR) 150 MG TABLET PO SCH (08:06)
[2020-10-24] MEDS: Albumin 25% 25gram/100mL 25 GM/100 ML IV.SOLN IVPB SCH (09:18)
[2020-10-24] MEDS: Furosemide 80 MG in 0.9 % Sodium Chloride 50 ML IVPB SCH (11:30)
[2020-10-24 18:01] LABS: VBG Ionized Calcium 1.19 mmol/L (1.15-1.35)
[2020-10-24 18:20] LABS: Calcium 10.2 mg/dL (8.6-10.3); Magnesium 2.2 mg/dL (1.6-2.6); Phosphorous 3.9 mg/dL (2.7-4.5); Potassium 4.2 mEq/L (3.5-5.1)
[2020-10-24] MEDS: traZODone 50 MG TABLET PO SCH (20:14)
[2020-10-24] MEDS: rOPINIRole 1 MG TABLET PO SCH (20:14)
[2020-10-24] MEDS: Metoprolol XL (24 HR) Succ 25 MG TAB.ER.24H PO SCH (20:14)
[2020-10-25] MEDS: Dexmedetomidine HCl 400 MCG/100 ML MLS IVC SCH ×2 (02:00→12:10)
[2020-10-25 04:54] LABS: Hematocrit 26.7 % (35.3-44.9); Hemoglobin 8.9 g/dL (11.5-15.4); Mean Corpuscular HGB Conc 33.3 g/dL (31.6-35.5); Mean Corpuscular Hemoglobin 31.1 pg (28.0-33.3); Mean Corpuscular Volume 93.4 fL (83.0-100.0); Mean Platelet Volume 9.6 fL (9.4-12.4); Platelet Count 269 K/mcL (140-400); Red Blood Count 2.86 M/mcL (3.82-4.97); Red Cell Distribution Width 13.5 % (11.5-14.5); White Blood Count 11.1 K/mcL (4.3-11.1)
[2020-10-25 05:18] LABS: Magnesium 2.1 mg/dL (1.6-2.6); Potassium 3.7 mEq/L (3.5-5.1)
[2020-10-25] MEDS: Insulin LISPRO 300 UNITS/3 ML VIAL SUBQ SCH ×5 (05:19→23:46)
[2020-10-25] MEDS: Potassium Chloride 40 MEQ/200 ML BAG IVPB PRN (05:23)
[2020-10-25 06:01] LABS: Phosphorous 4.1 mg/dL (2.7-4.5)
[2020-10-25] MEDS: Albumin 25% 25gram/100mL 25 GM/100 ML IV.SOLN IVPB SCH (08:37)
[2020-10-25] MEDS: BuPROPion XL (24 HR) 150 MG TABLET PO SCH (08:38)
[2020-10-25] MEDS: Baclofen 10 MG TABLET PO SCH (08:38)
[2020-10-25] MEDS: *HR* Heparin 5,000 UNIT/ML VIAL SQ SCH ×3 (08:38→23:35)
[2020-10-25] MEDS: Dexamethasone Sodium Phos/PF 10 MG/ML VIAL IVP SCH (08:39)
[2020-10-25] MEDS: Pregabalin 75 MG CAPSULE PO SCH (08:39)
[2020-10-25] MEDS: Loratadine 10 MG TABLET PO SCH (08:39)
[2020-10-25] MEDS: Cholecalciferol (D-3) 1,000 UNIT (25MCG) TABLET PO SCH (08:39)
[2020-10-25] MEDS ORDERED: *HR* Metoprolol 5 MG/5 ML VIAL IVP ONE (09:19)
[2020-10-25] MEDS: *HR* LORazepam 2 MG/ML VIAL IVP PRN (09:23)
[2020-10-25] MEDS: Furosemide 80 MG in 0.9 % Sodium Chloride 50 ML IVPB SCH (11:13)
[2020-10-25] MEDS ORDERED: D10% in Water 500 ML IVC PRN (12:25)
[2020-10-25] MEDS ORDERED: Clinimix E 5%-15% SOLUTION 2,000 ML with MVI, adult with vitamin K 10 ML IVC SCH (17:00)
[2020-10-25] MEDS: traZODone 50 MG TABLET PO SCH (21:12)
[2020-10-25] MEDS: Metoprolol XL (24 HR) Succ 25 MG TAB.ER.24H PO SCH (21:12)
[2020-10-25] MEDS: rOPINIRole 1 MG TABLET PO SCH (21:12)
[2020-10-26] MEDS: Dexmedetomidine HCl 400 MCG/100 ML MLS IVC SCH ×2 (00:39→13:46)
[2020-10-26] MEDS: Insulin LISPRO 300 UNITS/3 ML VIAL SUBQ SCH ×6 (03:56→23:57)
[2020-10-26 04:16] LABS: Hematocrit 26.7 % (35.3-44.9); Hemoglobin 8.7 g/dL (11.5-15.4); Mean Corpuscular HGB Conc 32.6 g/dL (31.6-35.5); Mean Corpuscular Hemoglobin 30.7 pg (28.0-33.3); Mean Corpuscular Volume 94.3 fL (83.0-100.0); Mean Platelet Volume 9.7 fL (9.4-12.4); Platelet Count 231 K/mcL (140-400); Red Blood Count 2.83 M/mcL (3.82-4.97); Red Cell Distribution Width 13.4 % (11.5-14.5); White Blood Count 11.1 K/mcL (4.3-11.1)
[2020-10-26 04:17] LABS: VBG Ionized Calcium 1.27 mmol/L (1.15-1.35)
[2020-10-26 04:34] LABS: Calcium 10.4 mg/dL (8.6-10.3); Magnesium 2.3 mg/dL (1.6-2.6); Phosphorous 3.2 mg/dL (2.7-4.5); Potassium 3.4 mEq/L (3.5-5.1)
[2020-10-26] MEDS: Furosemide 80 MG in 0.9 % Sodium Chloride 50 ML IVPB SCH (08:51)
[2020-10-26] MEDS: Albumin 25% 25gram/100mL 25 GM/100 ML IV.SOLN IVPB SCH (08:51)
[2020-10-26] MEDS: Dexamethasone Sodium Phos/PF 10 MG/ML VIAL IVP SCH (08:53)
[2020-10-26] MEDS: *HR* LORazepam 2 MG/ML VIAL IVP PRN (08:53)
[2020-10-26] MEDS: *HR* Heparin 5,000 UNIT/ML VIAL SQ SCH ×3 (08:53→23:47)
[2020-10-26] MEDS: Cholecalciferol (D-3) 1,000 UNIT (25MCG) TABLET PO SCH (08:54)
[2020-10-26] MEDS: Baclofen 10 MG TABLET PO SCH (08:54)
[2020-10-26] MEDS: Loratadine 10 MG TABLET PO SCH (08:55)
[2020-10-26] MEDS: Pregabalin 75 MG CAPSULE PO SCH (08:55)
[2020-10-26] MEDS: BuPROPion XL (24 HR) 150 MG TABLET PO SCH (08:55)
[2020-10-26] MEDS ORDERED: *HR* LORazepam 2 MG/ML VIAL IVP PRN (10:14)
[2020-10-26] MEDS: Ipratropium 1 PUFF INHALER IH SCH ×3 (11:41→22:28)
[2020-10-26] MEDS: *HR* LORazepam 1 MG TABLET PO SCH ×2 (15:42→21:10)
[2020-10-26] MEDS ORDERED: Clinimix E 5%-15% SOLUTION 2,000 ML with MVI, adult with vitamin K 10 ML IVC SCH (17:00)
[2020-10-26] MEDS ORDERED: *HR* LORazepam 1 MG TABLET PO SCH (21:00)
[2020-10-26] MEDS: traZODone 50 MG TABLET PO SCH (21:10)
[2020-10-26] MEDS: Metoprolol XL (24 HR) Succ 25 MG TAB.ER.24H PO SCH (21:10)
[2020-10-26] MEDS: rOPINIRole 1 MG TABLET PO SCH (21:10)
[2020-10-27] MEDS: Dexmedetomidine HCl 400 MCG/100 ML MLS IVC SCH ×2 (01:30→15:55)
[2020-10-27 03:46] LABS: VBG Ionized Calcium 1.31 mmol/L (1.15-1.35)
[2020-10-27 03:49] LABS: Hematocrit 26.2 % (35.3-44.9); Hemoglobin 8.7 g/dL (11.5-15.4); Mean Corpuscular HGB Conc 33.2 g/dL (31.6-35.5); Mean Corpuscular Hemoglobin 31.2 pg (28.0-33.3); Mean Corpuscular Volume 93.9 fL (83.0-100.0); Mean Platelet Volume 9.2 fL (9.4-12.4); Platelet Count 199 K/mcL (140-400); Red Blood Count 2.79 M/mcL (3.82-4.97); Red Cell Distribution Width 13.6 % (11.5-14.5); White Blood Count 12.8 K/mcL (4.3-11.1)
[2020-10-27] MEDS: Insulin LISPRO 300 UNITS/3 ML VIAL SUBQ SCH ×6 (03:53→23:37)
[2020-10-27 04:05] LABS: Calcium 10.8 mg/dL (8.6-10.3); Magnesium 2.4 mg/dL (1.6-2.6); Phosphorous 3.3 mg/dL (2.7-4.5); Potassium 3.8 mEq/L (3.5-5.1)
[2020-10-27] MEDS: Ipratropium 1 PUFF INHALER IH SCH ×4 (04:34→22:17)
[2020-10-27] MEDS: Potassium Chloride 40 MEQ/200 ML BAG IVPB PRN (05:36)
[2020-10-27] MEDS: Dexamethasone Sodium Phos/PF 10 MG/ML VIAL IVP SCH (09:30)
[2020-10-27] MEDS: *HR* Heparin 5,000 UNIT/ML VIAL SQ SCH ×3 (09:30→23:25)
[2020-10-27] MEDS: Loratadine 10 MG TABLET PO SCH (09:31)
[2020-10-27] MEDS: BuPROPion XL (24 HR) 150 MG TABLET PO SCH (09:31)
[2020-10-27] MEDS: Cholecalciferol (D-3) 1,000 UNIT (25MCG) TABLET PO SCH (09:31)
[2020-10-27] MEDS: Pregabalin 75 MG CAPSULE PO SCH (09:31)
[2020-10-27] MEDS: *HR* LORazepam 1 MG TABLET PO SCH ×3 (09:31→20:48)
[2020-10-27] MEDS: Baclofen 10 MG TABLET PO SCH (09:32)
[2020-10-27] MEDS: Albumin 25% 25gram/100mL 25 GM/100 ML IV.SOLN IVPB SCH (09:36)
[2020-10-27] MEDS: Furosemide 80 MG in 0.9 % Sodium Chloride 50 ML IVPB SCH (11:39)
[2020-10-27] MEDS ORDERED: Clinimix E 5%-15% SOLUTION 2,000 ML with MVI, adult with vitamin K 10 ML IVC SCH (17:00)
[2020-10-27] MEDS: rOPINIRole 1 MG TABLET PO SCH (20:48)
[2020-10-27] MEDS: Metoprolol XL (24 HR) Succ 25 MG TAB.ER.24H PO SCH (20:48)
[2020-10-27] MEDS: traZODone 50 MG TABLET PO SCH (20:48)
[2020-10-28 03:38] LABS: VBG Ionized Calcium 1.36 mmol/L (1.15-1.35)
[2020-10-28 03:57] LABS: Hematocrit 26.9 % (35.3-44.9); Hemoglobin 8.9 g/dL (11.5-15.4); Mean Corpuscular HGB Conc 33.1 g/dL (31.6-35.5); Mean Corpuscular Hemoglobin 30.8 pg (28.0-33.3); Mean Corpuscular Volume 93.1 fL (83.0-100.0); Mean Platelet Volume 9.4 fL (9.4-12.4); Nucleated Red Blood Cells 0.1 /100 WBC (0); Platelet Count 181 K/mcL (140-400); Red Blood Count 2.89 M/mcL (3.82-4.97); Red Cell Distribution Width 13.7 % (11.5-14.5); White Blood Count 15.8 K/mcL (4.3-11.1)
[2020-10-28] MEDS: Insulin LISPRO 300 UNITS/3 ML VIAL SUBQ SCH ×5 (04:13→20:17)
[2020-10-28 04:15] LABS: Calcium 11.3 mg/dL (8.6-10.3); Magnesium 2.3 mg/dL (1.6-2.6); Phosphorous 4.6 mg/dL (2.7-4.5)
[2020-10-28] MEDS: Ipratropium 1 PUFF INHALER IH SCH ×4 (04:39→22:50)
[2020-10-28 04:41] LABS: Anisocytosis 1+ (Not Present); Monocytes # 0.6 K/mcL (0.0-1.3); Platelet Estimate Normal (Normal); Smudge Cells Present (Not Present); Toxic Granulation Present (Not Present)
[2020-10-28] MEDS: Dexmedetomidine HCl 400 MCG/100 ML MLS IVC SCH ×3 (05:03→23:29)
[2020-10-28] MEDS: Dexamethasone Sodium Phos/PF 10 MG/ML VIAL IVP SCH (07:40)
[2020-10-28] MEDS: *HR* Heparin 5,000 UNIT/ML VIAL SQ SCH ×2 (07:41→15:43)
[2020-10-28] MEDS: Albumin 25% 25gram/100mL 25 GM/100 ML IV.SOLN IVPB SCH (07:41)
[2020-10-28] MEDS: BuPROPion XL (24 HR) 150 MG TABLET PO SCH (07:42)
[2020-10-28] MEDS: Cholecalciferol (D-3) 1,000 UNIT (25MCG) TABLET PO SCH (07:42)
[2020-10-28] MEDS: Loratadine 10 MG TABLET PO SCH (07:43)
[2020-10-28] MEDS: *HR* LORazepam 1 MG TABLET PO SCH ×3 (07:43→20:18)
[2020-10-28] MEDS: Baclofen 10 MG TABLET PO SCH (07:43)
[2020-10-28] MEDS: Pregabalin 75 MG CAPSULE PO SCH (07:43)
[2020-10-28] MEDS: Furosemide 80 MG in 0.9 % Sodium Chloride 50 ML IVPB SCH (10:04)
[2020-10-28] MEDS ORDERED: Clinimix 5%-20% SOLUTION 2,000 ML with MVI, adult with vitamin K 10 ML, Sodium Acetat... IVC SCH (17:00)
[2020-10-28 19:59] LABS: Bacteria,Urine Few per hpf (None-Few); Bilirubin,Urine Negative (Negative); Blood,Urine Trace (Negative); Budding Yeast,Urine Few per hpf (None Seen); Clarity,Urine Turbid (Clear); Color,Urine Yellow (Yellow); Glucose,Urine (UA) Normal (Normal); Ketones,Urine Negative (Negative); Leukocyte Esterase,Urine Large (Negative); Mucus,Urine Few per lpf (None-Few); Nitrite,Urine Negative (Negative); Protein,Urine 30 mg/dL (Neg-Trace); RBC,Urine 0-3 per hpf (0-3); Specific Gravity,Urine 1.013 (1.010-1.025); Squamous Epithelial Cell,Urine Few per hpf (None-Few); Urobilinogen,Urine Normal (Normal); WBC,Urine 30-50 per hpf (0-3)
[2020-10-28 20:02] LABS: Sodium, Urine 14.6 mEq/L
[2020-10-28] MEDS: traZODone 50 MG TABLET PO SCH (20:17)
[2020-10-28] MEDS: Metoprolol XL (24 HR) Succ 25 MG TAB.ER.24H PO SCH (20:18)
[2020-10-28] MEDS: rOPINIRole 1 MG TABLET PO SCH (20:18)
[2020-10-29] MEDS: Insulin LISPRO 300 UNITS/3 ML VIAL SUBQ SCH ×6 (00:11→20:25)
[2020-10-29] MEDS: *HR* Heparin 5,000 UNIT/ML VIAL SQ SCH ×3 (00:11→15:58)
[2020-10-29] MEDS: Ipratropium 1 PUFF INHALER IH SCH ×4 (04:15→22:37)
[2020-10-29 04:41] LABS: Hematocrit 26.7 % (35.3-44.9); Hemoglobin 8.6 g/dL (11.5-15.4); Mean Corpuscular HGB Conc 32.2 g/dL (31.6-35.5); Mean Corpuscular Hemoglobin 30.7 pg (28.0-33.3); Mean Corpuscular Volume 95.4 fL (83.0-100.0); Mean Platelet Volume 9.6 fL (9.4-12.4); Platelet Count 163 K/mcL (140-400); Red Cell Distribution Width 13.7 % (11.5-14.5)
[2020-10-29 04:59] LABS: Magnesium 2.5 mg/dL (1.6-2.6); Phosphorous 3.7 mg/dL (2.7-4.5); Potassium 3.4 mEq/L (3.5-5.1)
[2020-10-29] MEDS: *HR* LORazepam 1 MG TABLET PO SCH ×3 (08:57→20:24)
[2020-10-29] MEDS: Dexamethasone Sodium Phos/PF 10 MG/ML VIAL IVP SCH (08:57)
[2020-10-29] MEDS: BuPROPion XL (24 HR) 150 MG TABLET PO SCH (08:57)
[2020-10-29] MEDS: Pregabalin 75 MG CAPSULE PO SCH (08:57)
[2020-10-29] MEDS: Baclofen 10 MG TABLET PO SCH (08:57)
[2020-10-29] MEDS: Cholecalciferol (D-3) 1,000 UNIT (25MCG) TABLET PO SCH (08:57)
[2020-10-29] MEDS: Loratadine 10 MG TABLET PO SCH (08:57)
[2020-10-29] MEDS: Dexmedetomidine HCl 400 MCG/100 ML MLS IVC SCH (09:30)
[2020-10-29] MEDS ORDERED: Albumin 25% 25gram/100mL 25 GM/100 ML IV.SOLN IVPB ONE (14:40)
[2020-10-29] MEDS: hydrOXYzine pamoate 25 MG CAPSULE PO PRN (14:42)
[2020-10-29] MEDS: cefTRIAXone 1,000 MG in Water for inj. (sterile) 10 ML IVP SCH (15:58)
[2020-10-29] MEDS ORDERED: Clinimix E 5%-20% SOLUTION 2,000 ML with MVI, adult with vitamin K 10 ML, Trace Eleme... IVC SCH (17:00)
[2020-10-29] MEDS: Furosemide 40 MG/4 ML VIAL IVP ONE (18:03)
[2020-10-29 18:25] LABS: VBG Ionized Calcium 1.33 mmol/L (1.15-1.35)
[2020-10-29 18:40] LABS: Magnesium 2.3 mg/dL (1.6-2.6); Phosphorous 2.1 mg/dL (2.7-4.5); Potassium 4.9 mEq/L (3.5-5.1)
[2020-10-29] MEDS: traZODone 50 MG TABLET PO SCH (20:24)
[2020-10-29] MEDS: Metoprolol XL (24 HR) Succ 25 MG TAB.ER.24H PO SCH (20:24)
[2020-10-29] MEDS: rOPINIRole 1 MG TABLET PO SCH (20:25)
[2020-10-30] MEDS: *HR* Heparin 5,000 UNIT/ML VIAL SQ SCH ×3 (00:45→15:27)
[2020-10-30] MEDS: Insulin LISPRO 300 UNITS/3 ML VIAL SUBQ SCH ×7 (00:51→23:24)
[2020-10-30] MEDS: Ipratropium 1 PUFF INHALER IH SCH ×4 (03:42→21:16)
[2020-10-30 04:24] LABS: Hematocrit 26.4 % (35.3-44.9); Hemoglobin 8.8 g/dL (11.5-15.4); Mean Corpuscular HGB Conc 33.3 g/dL (31.6-35.5); Mean Corpuscular Hemoglobin 31.7 pg (28.0-33.3); Mean Platelet Volume 9.3 fL (9.4-12.4); Platelet Count 158 K/mcL (140-400); Red Blood Count 2.78 M/mcL (3.82-4.97); Red Cell Distribution Width 13.7 % (11.5-14.5); White Blood Count 21.1 K/mcL (4.3-11.1)
[2020-10-30 04:33] LABS: INR 1.1; Prothrombin Time 12.8 Seconds (9.4-12.1)
[2020-10-30 04:35] LABS: Activated Partial Thrombo Time 37.3 Seconds (26.0-36.0)
[2020-10-30 04:46] LABS: Albumin 5.4 g/dL (3.5-5.7); Albumin/Globulin Ratio 1.6 (1.1-2.2); Bilirubin,Direct 0.1 mg/dL (0.0-0.2); Bilirubin,Indirect 0.4 mg/dL (0.0-1.0); Bilirubin,Total 0.5 mg/dL (0.3-1.0); Globulin 3.3 g/dL (2.4-3.5); Total Protein 8.7 g/dL (6.4-8.9)
[2020-10-30 04:47] LABS: Calcium 11.5 mg/dL (8.6-10.3); Magnesium 2.2 mg/dL (1.6-2.6); Phosphorous 3.6 mg/dL (2.7-4.5); Potassium 3.9 mEq/L (3.5-5.1)
[2020-10-30] MEDS: Cholecalciferol (D-3) 1,000 UNIT (25MCG) TABLET PO SCH (07:28)
[2020-10-30] MEDS: BuPROPion XL (24 HR) 150 MG TABLET PO SCH (07:29)
[2020-10-30] MEDS: Loratadine 10 MG TABLET PO SCH (07:29)
[2020-10-30] MEDS: Baclofen 10 MG TABLET PO SCH (07:29)
[2020-10-30] MEDS: Pregabalin 75 MG CAPSULE PO SCH (07:29)
[2020-10-30] MEDS: *HR* LORazepam 1 MG TABLET PO SCH ×3 (07:29→19:46)
[2020-10-30] MEDS ORDERED: Albumin 25% 25gram/100mL 25 GM/100 ML IV.SOLN IVPB ONE (09:38)
[2020-10-30] MEDS ORDERED: Furosemide 40 MG/4 ML VIAL IVP ONE (09:38)
[2020-10-30] MEDS: cefTRIAXone 1,000 MG in Water for inj. (sterile) 10 ML IVP SCH (15:20)
[2020-10-30] MEDS: Furosemide 40 MG/4 ML VIAL IVP ONE (15:25)
[2020-10-30] MEDS ORDERED: *HR* Heparin 5,000 UNIT/ML VIAL IVP ONE (16:14)
[2020-10-30] MEDS ORDERED: *HR* Heparin 5,000 UNIT/ML VIAL IVP PRN (16:14)
[2020-10-30] MEDS: Heparin 25,000UNIT/250ML 1/2NS 25,000 UNIT/250 ML IV.SOLN IVC SCH (17:08)
[2020-10-30] MEDS: rOPINIRole 1 MG TABLET PO SCH (19:46)
[2020-10-30] MEDS: traZODone 50 MG TABLET PO SCH (19:46)
[2020-10-30 22:18] LABS: ABG Base Excess -7 mEq/L (-2 to 3); ABG HCO3 19 mEq/L (21-27); ABG Oxygen Saturation 99 % (95-98); ABG PCO2 36 mmHg (35-45); ABG PH 7.32 pH Units (7.32-7.45); ABG PO2 166 mmHg (85-104); ABG TCO2 20 mEq/L (20-26); Blood Gas Modality NCPAP
[2020-10-30 22:56] LABS: Calcium 10.6 mg/dL (8.6-10.3); Potassium 4.2 mEq/L (3.5-5.1)
[2020-10-31] MEDS: Ipratropium 1 PUFF INHALER IH SCH ×4 (03:32→22:30)
[2020-10-31 03:49] LABS: Hematocrit 24.4 % (35.3-44.9); Hemoglobin 7.8 g/dL (11.5-15.4); Mean Corpuscular Hemoglobin 30.7 pg (28.0-33.3); Mean Corpuscular Volume 96.1 fL (83.0-100.0); Mean Platelet Volume 9.6 fL (9.4-12.4); Platelet Count 134 K/mcL (140-400); Red Blood Count 2.54 M/mcL (3.82-4.97); White Blood Count 18.3 K/mcL (4.3-11.1)
[2020-10-31] MEDS: Insulin LISPRO 300 UNITS/3 ML VIAL SUBQ SCH ×5 (04:08→20:25)
[2020-10-31 04:10] LABS: Calcium 10.6 mg/dL (8.6-10.3); Magnesium 2.3 mg/dL (1.6-2.6); Potassium 4.4 mEq/L (3.5-5.1)
[2020-10-31] MEDS: *HR* LORazepam 1 MG TABLET PO SCH ×3 (07:59→20:06)
[2020-10-31] MEDS: Cholecalciferol (D-3) 1,000 UNIT (25MCG) TABLET PO SCH (08:14)
[2020-10-31] MEDS: Loratadine 10 MG TABLET PO SCH (08:14)
[2020-10-31] MEDS: Baclofen 10 MG TABLET PO SCH (08:15)
[2020-10-31] MEDS: Pregabalin 75 MG CAPSULE PO SCH (08:15)
[2020-10-31] MEDS ORDERED: Furosemide 40 MG/4 ML VIAL IVP ONE (09:57)
[2020-10-31 10:53] LABS: ABG Base Excess -8 mEq/L (-2 to 3); ABG HCO3 16 mEq/L (21-27); ABG Oxygen Saturation 92 % (95-98); ABG PCO2 29 mmHg (35-45); ABG PH 7.36 pH Units (7.32-7.45); ABG PO2 66 mmHg (85-104); ABG TCO2 17 mEq/L (20-26)
[2020-10-31] MEDS ORDERED: *HR* Propofol 200 MG/20 ML VIAL IVP ONE (11:07)
[2020-10-31] MEDS ORDERED: *HR* Etomidate 20 MG/10 ML AMPUL IVP ONE (11:07)
[2020-10-31] MEDS ORDERED: *HR* Midazolam HCl 5 MG/5 ML VIAL IVP ONE (11:07)
[2020-10-31] MEDS ORDERED: *HR* Midazolam HCl 2 MG/2 ML VIAL IVP ONE (11:07)
[2020-10-31] MEDS ORDERED: Perflutren Lipid Microsphere 1.3 ML in 0.9 % Sodium Chloride 8.7 ML IVP PRN (11:26)
[2020-10-31] MEDS ORDERED: 0.9 % Sodium Chloride 1,000 ML ONE ×2 (13:21→14:59)
[2020-10-31] MEDS ORDERED: 0.9 % Sodium Chloride 250 ML IVC PRN (13:33)
[2020-10-31] MEDS ORDERED: *HR* Heparin 10,000 UNIT/10 ML VIAL IV PRN ×2 (13:33)
[2020-10-31] MEDS ORDERED: Albumin 25% 25gram/100mL 25 GM/100 ML IV.SOLN IVPB PRN (13:33)
[2020-10-31] MEDS: Dexmedetomidine HCl 400 MCG/100 ML MLS IVC SCH ×2 (13:37→22:32)
[2020-10-31] MEDS ORDERED: 0.9 % Sodium Chloride 1,000 ML PRIME SCH (13:45)
[2020-10-31] MEDS: Norepinephrine 4 MG/254 ML IV.SOLN IVC SCH ×2 (14:45→20:27)
[2020-10-31] MEDS ORDERED: Artificial Tears SOLN 15 ML BOTTLE BOTH EYES PRN (15:20)
[2020-10-31] MEDS ORDERED: Ipratropium/Albuterol Neb 3 ML IH PRN (15:22)
[2020-10-31] MEDS: FentaNYL (PF) 1,000 MCG/100 ML IV.SOLN IVC SCH (15:54)
[2020-10-31 16:50] LABS: ABG Base Excess -5 mEq/L (-2 to 3); ABG HCO3 21 mEq/L (21-27); ABG Oxygen Saturation 100 % (95-98); ABG PCO2 42 mmHg (35-45); ABG PH 7.31 pH Units (7.32-7.45); ABG PO2 207 mmHg (85-104); ABG TCO2 22 mEq/L (20-26); Blood Gas VT 420 cc
[2020-10-31] MEDS: cefTRIAXone 1,000 MG in Water for inj. (sterile) 10 ML IVP SCH (16:58)
[2020-10-31] MEDS: Artificial Tears SOLN 15 ML BOTTLE BOTH EYES SCH ×2 (16:58→20:05)
[2020-10-31] MEDS: Sennosides/Docusate Sodium TABLET PO SCH ×2 (17:01→20:29)
[2020-10-31] MEDS: Azithromycin 500 MG in 0.9 % Sodium Chloride 250 ML IVPB SCH (19:02)
[2020-10-31] MEDS: Cefepime HCl 1,000 MG in 0.9 % Sodium Chloride Mini Bag 100 ML IVPB SCH (19:02)
[2020-10-31] MEDS: traZODone 50 MG TABLET PO SCH (20:06)
[2020-10-31] MEDS: rOPINIRole 1 MG TABLET PO SCH (20:06)
[2020-10-31] MEDS: Chlorhexidine Rinse 15 ML MOUTHWASH MM SCH (20:06)
[2020-11-01] MEDS: Artificial Tears SOLN 15 ML BOTTLE BOTH EYES SCH ×7 (00:17→23:44)
[2020-11-01] MEDS: Insulin LISPRO 300 UNITS/3 ML VIAL SUBQ SCH ×6 (00:17→19:53)
[2020-11-01] MEDS: FentaNYL (PF) 1,000 MCG/100 ML IV.SOLN IVC SCH ×3 (02:31→17:18)
[2020-11-01 03:54] LABS: Hematocrit 20.1 % (35.3-44.9); Hemoglobin 6.4 g/dL (11.5-15.4); Mean Corpuscular HGB Conc 31.8 g/dL (31.6-35.5); Mean Corpuscular Hemoglobin 30.8 pg (28.0-33.3); Mean Corpuscular Volume 96.6 fL (83.0-100.0); Mean Platelet Volume 9.8 fL (9.4-12.4); Platelet Count 135 K/mcL (140-400); Red Blood Count 2.08 M/mcL (3.82-4.97); Red Cell Distribution Width 14.3 % (11.5-14.5); White Blood Count 13.3 K/mcL (4.3-11.1)
[2020-11-01 04:11] LABS: Calcium 9.3 mg/dL (8.6-10.3); Magnesium 2.2 mg/dL (1.6-2.6); Potassium 3.9 mEq/L (3.5-5.1)
[2020-11-01] MEDS: Ipratropium 1 PUFF INHALER IH SCH ×4 (04:12→21:19)
[2020-11-01 04:32] LABS: ABG Base Excess -7 mEq/L (-2 to 3); ABG HCO3 18 mEq/L (21-27); ABG Oxygen Saturation 88 % (95-98); ABG PCO2 36 mmHg (35-45); ABG PH 7.31 pH Units (7.32-7.45); ABG PO2 60 mmHg (85-104); ABG TCO2 19 mEq/L (20-26); Blood Gas VT 420 cc
[2020-11-01] MEDS: Cefepime HCl 1,000 MG in 0.9 % Sodium Chloride Mini Bag 100 ML IVPB SCH ×2 (05:54→17:50)
[2020-11-01] MEDS: Norepinephrine 4 MG/254 ML IV.SOLN IVC SCH ×2 (06:04→19:22)
[2020-11-01] MEDS ORDERED: 0.9 % Sodium Chloride 250 ML ONE ×2 (06:15→10:56)
[2020-11-01] MEDS: Dexmedetomidine HCl 400 MCG/100 ML MLS IVC SCH ×2 (07:08→15:01)
[2020-11-01 07:13] LABS: Hematocrit 20.3 % (35.3-44.9); Hemoglobin 6.4 g/dL (11.5-15.4)
[2020-11-01] MEDS: *HR* LORazepam 1 MG TABLET PO SCH (07:51)
[2020-11-01] MEDS: Baclofen 10 MG TABLET PO SCH (08:27)
[2020-11-01] MEDS: Sennosides/Docusate Sodium TABLET PO SCH ×2 (08:27→19:53)
[2020-11-01] MEDS: Cholecalciferol (D-3) 1,000 UNIT (25MCG) TABLET PO SCH (08:27)
[2020-11-01] MEDS: Chlorhexidine Rinse 15 ML MOUTHWASH MM SCH ×2 (08:28→19:53)
[2020-11-01] MEDS: Pantoprazole 40 MG VIAL IVP SCH ×2 (10:57→17:52)
[2020-11-01] MEDS ORDERED: Isovue-370 500 ML BOTTLE PO ONE (13:46)
[2020-11-01] MEDS: Azithromycin 500 MG in 0.9 % Sodium Chloride 250 ML IVPB SCH (17:47)
[2020-11-01] MEDS: MetroNIDAZOLE 500 MG/100 ML 500 MG/100 ML BAG IVPB SCH ×2 (17:52→23:44)
[2020-11-01 18:18] LABS: Basophils # 0.1 K/mcL (0.0-0.2); Basophils % 0.6 %; Eosinophils # 2.1 K/mcL (0.0-0.6); Eosinophils % 16.6 %; Immature Granulocytes % 4.7 % (0-4); Lymphocytes # 0.6 K/mcL (0.6-4.6); Lymphocytes % 4.3 %; Mean Corpuscular HGB Conc 32.1 g/dL (31.6-35.5); Mean Corpuscular Hemoglobin 31.3 pg (28.0-33.3); Mean Corpuscular Volume 97.2 fL (83.0-100.0); Mean Platelet Volume 9.7 fL (9.4-12.4); Monocytes # 0.3 K/mcL (0.0-1.3); Monocytes % 2.4 %; Nucleated Red Blood Cells 0.5 /100 WBC (0); Platelet Count 108 K/mcL (140-400); Red Blood Count 2.88 M/mcL (3.82-4.97); Red Cell Distribution Width 13.5 % (11.5-14.5); Segmented Neutrophils % 71.4 %; White Blood Count 12.8 K/mcL (4.3-11.1)
[2020-11-01 18:20] LABS: Neutrophils # 9.1 K/mcL (1.6-8.9)
[2020-11-01 18:32] LABS: VBG Ionized Calcium 1.14 mmol/L (1.15-1.35)
[2020-11-01 18:44] LABS: Anisocytosis 1+ (Not Present); Platelet Estimate Slight Decrease (Normal); Smudge Cells Present (Not Present)
[2020-11-01 18:45] LABS: Poikilocytosis 1+ (Not Present); Polychromasia 1+ (Not Present); Reactive Lymphocytes Present (Not Present)
[2020-11-01] MEDS: rOPINIRole 1 MG TABLET PO SCH (19:53)
[2020-11-01] MEDS: traZODone 50 MG TABLET PO SCH (19:53)
[2020-11-01] MEDS: *HR* Heparin 5,000 UNIT/ML VIAL IVP PRN (19:56)
[2020-11-02] MEDS: Dexmedetomidine HCl 400 MCG/100 ML MLS IVC SCH ×3 (00:02→14:44)
[2020-11-02] MEDS: Insulin LISPRO 300 UNITS/3 ML VIAL SUBQ SCH ×6 (00:15→20:09)
[2020-11-02] MEDS: FentaNYL (PF) 1,000 MCG/100 ML IV.SOLN IVC SCH ×4 (00:16→22:51)
[2020-11-02] MEDS: Ipratropium 1 PUFF INHALER IH SCH ×4 (03:24→21:48)
[2020-11-02] MEDS: Artificial Tears SOLN 15 ML BOTTLE BOTH EYES SCH ×5 (03:55→20:09)
[2020-11-02 04:00] LABS: ABG Base Excess -12 mEq/L (-2 to 3); ABG HCO3 16 mEq/L (21-27); ABG Oxygen Saturation 99 % (95-98); ABG PCO2 45 mmHg (35-45); ABG PH 7.15 pH Units (7.32-7.45); ABG PO2 190 mmHg (85-104); ABG TCO2 17 mEq/L (20-26); Blood Gas Modality ASSIST CONTROL; Blood Gas VT 420 cc
[2020-11-02 04:19] LABS: VBG Ionized Calcium 1.16 mmol/L (1.15-1.35)
[2020-11-02 04:19] LABS: Basophils # 0.1 K/mcL (0.0-0.2); Basophils % 0.5 %; Eosinophils # 1.8 K/mcL (0.0-0.6); Eosinophils % 15.4 %; Hematocrit 26.2 % (35.3-44.9); Hemoglobin 8.5 g/dL (11.5-15.4); Immature Granulocytes % 4.8 % (0-4); Lymphocytes # 0.5 K/mcL (0.6-4.6); Lymphocytes % 4.2 %; Mean Corpuscular HGB Conc 32.4 g/dL (31.6-35.5); Mean Corpuscular Hemoglobin 31.3 pg (28.0-33.3); Mean Corpuscular Volume 96.3 fL (83.0-100.0); Mean Platelet Volume 9.7 fL (9.4-12.4); Monocytes # 0.3 K/mcL (0.0-1.3); Monocytes % 2.6 %; Neutrophils # 8.3 K/mcL (1.6-8.9); Nucleated Red Blood Cells 0.3 /100 WBC (0); Platelet Count 105 K/mcL (140-400); Red Blood Count 2.72 M/mcL (3.82-4.97); Segmented Neutrophils % 72.5 %; White Blood Count 11.4 K/mcL (4.3-11.1)
[2020-11-02 04:26] LABS: Calcium 8.7 mg/dL (8.6-10.3); Magnesium 1.9 mg/dL (1.6-2.6); Phosphorous 8.6 mg/dL (2.7-4.5); Potassium 3.5 mEq/L (3.5-5.1)
[2020-11-02 04:44] LABS: Anisocytosis 1+ (Not Present); Burr Cells 1+ (Not Present); Platelet Estimate Slight Decrease (Normal); Poikilocytosis 1+ (Not Present); Polychromasia 1+ (Not Present); Smudge Cells Present (Not Present)
[2020-11-02] MEDS: Pantoprazole 40 MG VIAL IVP SCH ×2 (05:47→17:13)
[2020-11-02] MEDS: Cefepime HCl 1,000 MG in 0.9 % Sodium Chloride Mini Bag 100 ML IVPB SCH ×2 (05:47→17:13)
[2020-11-02] MEDS: Heparin 25,000UNIT/250ML 1/2NS 25,000 UNIT/250 ML IV.SOLN IVC SCH ×2 (05:48→08:22)
[2020-11-02] MEDS: Sennosides/Docusate Sodium TABLET PO SCH (08:02)
[2020-11-02] MEDS: Chlorhexidine Rinse 15 ML MOUTHWASH MM SCH ×2 (08:03→20:10)
[2020-11-02] MEDS: Baclofen 10 MG TABLET PO SCH (08:03)
[2020-11-02] MEDS: Cholecalciferol (D-3) 1,000 UNIT (25MCG) TABLET PO SCH (08:03)
[2020-11-02] MEDS: MetroNIDAZOLE 500 MG/100 ML 500 MG/100 ML BAG IVPB SCH ×2 (08:03→15:50)
[2020-11-02] MEDS: Nystatin POWDER 30 GM BOTTLE TP SCH ×3 (08:04→20:10)
[2020-11-02] MEDS ORDERED: Sennosides/Docusate Sodium TABLET PO PRN (08:38)
[2020-11-02 09:13] LABS: Albumin/Globulin Ratio 1.2 (1.1-2.2); Bilirubin,Direct 0.1 mg/dL (0.0-0.2); Bilirubin,Indirect 0.3 mg/dL (0.0-1.0); Bilirubin,Total 0.4 mg/dL (0.3-1.0); Globulin 2.5 g/dL (2.4-3.5); Total Protein 5.5 g/dL (6.4-8.9)
[2020-11-02] MEDS ORDERED: Furosemide 40 MG/4 ML VIAL IVP ONE (09:28)
[2020-11-02] MEDS: Norepinephrine 4 MG/254 ML IV.SOLN IVC SCH (11:40)
[2020-11-02 15:12] LABS: Hematocrit 24.1 % (35.3-44.9); Hemoglobin 7.9 g/dL (11.5-15.4)
[2020-11-02] MEDS: rOPINIRole 1 MG TABLET PO SCH (20:10)
[2020-11-02] MEDS: traZODone 50 MG TABLET PO SCH (20:10)
[2020-11-02 23:49] LABS: Hematocrit 23.2 % (35.3-44.9); Hemoglobin 7.9 g/dL (11.5-15.4)
[2020-11-03] MEDS: Dexmedetomidine HCl 400 MCG/100 ML MLS IVC SCH ×3 (00:03→15:36)
[2020-11-03] MEDS: Artificial Tears SOLN 15 ML BOTTLE BOTH EYES SCH ×7 (00:03→23:50)
[2020-11-03] MEDS: MetroNIDAZOLE 500 MG/100 ML 500 MG/100 ML BAG IVPB SCH ×4 (00:04→23:50)
[2020-11-03] MEDS: Insulin LISPRO 300 UNITS/3 ML VIAL SUBQ SCH ×7 (00:07→23:50)
[2020-11-03] MEDS: Ipratropium 1 PUFF INHALER IH SCH ×4 (03:25→21:54)
[2020-11-03 04:03] LABS: ABG Base Excess -5 mEq/L (-2 to 3); ABG HCO3 21 mEq/L (21-27); ABG Oxygen Saturation 99 % (95-98); ABG PCO2 44 mmHg (35-45); ABG PH 7.29 pH Units (7.32-7.45); ABG PO2 169 mmHg (85-104); ABG TCO2 22 mEq/L (20-26); Blood Gas VT 420 cc
[2020-11-03 04:20] LABS: Hematocrit 23.7 % (35.3-44.9); Hemoglobin 7.9 g/dL (11.5-15.4); Mean Corpuscular HGB Conc 33.3 g/dL (31.6-35.5); Mean Corpuscular Hemoglobin 31.2 pg (28.0-33.3); Mean Corpuscular Volume 93.7 fL (83.0-100.0); Mean Platelet Volume 9.6 fL (9.4-12.4); Platelet Count 114 K/mcL (140-400); Red Blood Count 2.53 M/mcL (3.82-4.97); White Blood Count 9.7 K/mcL (4.3-11.1)
[2020-11-03 04:36] LABS: Calcium 8.4 mg/dL (8.6-10.3); Magnesium 1.8 mg/dL (1.6-2.6); Phosphorous 6.7 mg/dL (2.7-4.5); Potassium 2.7 mEq/L (3.5-5.1)
[2020-11-03 04:38] LABS: VBG Ionized Calcium 1.13 mmol/L (1.15-1.35)
[2020-11-03] MEDS: FentaNYL (PF) 1,000 MCG/100 ML IV.SOLN IVC SCH ×3 (05:32→20:10)
[2020-11-03] MEDS: Cefepime HCl 1,000 MG in 0.9 % Sodium Chloride Mini Bag 100 ML IVPB SCH ×2 (06:03→18:30)
[2020-11-03] MEDS: Pantoprazole 40 MG VIAL IVP SCH ×2 (06:04→18:27)
[2020-11-03] MEDS: Heparin 25,000UNIT/250ML 1/2NS 25,000 UNIT/250 ML IV.SOLN IVC SCH (07:37)
[2020-11-03] MEDS: Chlorhexidine Rinse 15 ML MOUTHWASH MM SCH ×2 (08:00→20:25)
[2020-11-03] MEDS ORDERED: Potassium Chloride Elixir 20 MEQ/15 ML UDC GTUBE ONE (08:01)
[2020-11-03] MEDS: Cholecalciferol (D-3) 1,000 UNIT (25MCG) TABLET PO SCH (08:02)
[2020-11-03] MEDS: Nystatin POWDER 30 GM BOTTLE TP SCH ×3 (08:02→20:25)
[2020-11-03] MEDS: Baclofen 10 MG TABLET PO SCH (08:02)
[2020-11-03] MEDS ORDERED: Furosemide 40 MG/4 ML VIAL IVP ONE (11:07)
[2020-11-03 13:19] LABS: Hematocrit 23.8 % (35.3-44.9); Hemoglobin 7.7 g/dL (11.5-15.4)
[2020-11-03 14:37] LABS: Magnesium 2.6 mg/dL (1.6-2.6); Potassium 3.8 mEq/L (3.5-5.1)
[2020-11-03] MEDS: Potassium Chloride 40 MEQ/200 ML BAG IVPB PRN (15:44)
[2020-11-03] MEDS: Norepinephrine 4 MG/254 ML IV.SOLN IVC SCH (17:15)
[2020-11-03] MEDS: rOPINIRole 1 MG TABLET PO SCH (20:25)
[2020-11-03] MEDS: traZODone 50 MG TABLET PO SCH (20:25)
[2020-11-04] MEDS: Dexmedetomidine HCl 400 MCG/100 ML MLS IVC SCH ×2 (00:45→10:51)
[2020-11-04 03:21] LABS: Hematocrit 23.2 % (35.3-44.9); Hemoglobin 7.3 g/dL (11.5-15.4); Mean Corpuscular HGB Conc 31.5 g/dL (31.6-35.5); Mean Corpuscular Hemoglobin 30.7 pg (28.0-33.3); Mean Corpuscular Volume 97.5 fL (83.0-100.0); Mean Platelet Volume 9.6 fL (9.4-12.4); Platelet Count 107 K/mcL (140-400); Red Blood Count 2.38 M/mcL (3.82-4.97); Red Cell Distribution Width 15.2 % (11.5-14.5); White Blood Count 9.8 K/mcL (4.3-11.1)
[2020-11-04 03:30] LABS: Heparin anti-factor XA UFH 0.29 IU/mL (0.30-0.70)
[2020-11-04] MEDS: Ipratropium 1 PUFF INHALER IH SCH ×2 (03:30→09:51)
[2020-11-04 03:43] LABS: Calcium 8.3 mg/dL (8.6-10.3); Magnesium 2.3 mg/dL (1.6-2.6); Phosphorous 9.5 mg/dL (2.7-4.5); Potassium 3.6 mEq/L (3.5-5.1)
[2020-11-04 04:01] LABS: ABG Base Excess -13 mEq/L (-2 to 3); ABG HCO3 16 mEq/L (21-27); ABG Oxygen Saturation 84 % (95-98); ABG PCO2 49 mmHg (35-45); ABG PH 7.12 pH Units (7.32-7.45); ABG PO2 65 mmHg (85-104); ABG TCO2 17 mEq/L (20-26); Blood Gas Modality ASSIST CONTROL; Blood Gas VT 420 cc
[2020-11-04] MEDS: Insulin LISPRO 300 UNITS/3 ML VIAL SUBQ SCH (04:03)
[2020-11-04] MEDS: Artificial Tears SOLN 15 ML BOTTLE BOTH EYES SCH ×2 (04:03→07:40)
[2020-11-04] MEDS: *HR* Heparin 5,000 UNIT/ML VIAL IVP PRN (04:14)
[2020-11-04] MEDS: Cefepime HCl 1,000 MG in 0.9 % Sodium Chloride Mini Bag 100 ML IVPB SCH (05:26)
[2020-11-04] MEDS: Pantoprazole 40 MG VIAL IVP SCH (05:26)
[2020-11-04] MEDS: Potassium Chloride 40 MEQ/200 ML BAG IVPB PRN (06:07)
[2020-11-04] MEDS: Heparin 25,000UNIT/250ML 1/2NS 25,000 UNIT/250 ML IV.SOLN IVC SCH (06:13)
[2020-11-04] MEDS: FentaNYL (PF) 1,000 MCG/100 ML IV.SOLN IVC SCH (06:34)
[2020-11-04] MEDS: Cholecalciferol (D-3) 1,000 UNIT (25MCG) TABLET PO SCH (07:39)
[2020-11-04] MEDS: Baclofen 10 MG TABLET PO SCH (07:39)
[2020-11-04] MEDS: Chlorhexidine Rinse 15 ML MOUTHWASH MM SCH (07:39)
[2020-11-04] MEDS: Nystatin POWDER 30 GM BOTTLE TP SCH (07:40)
[2020-11-04] MEDS: MetroNIDAZOLE 500 MG/100 ML 500 MG/100 ML BAG IVPB SCH (07:43)
[2020-11-04 10:01] LABS: ABG Base Excess -8 mEq/L (-2 to 3); ABG HCO3 19 mEq/L (21-27); ABG Oxygen Saturation 99 % (95-98); ABG PCO2 44 mmHg (35-45); ABG PH 7.24 pH Units (7.32-7.45); ABG PO2 155 mmHg (85-104); ABG TCO2 20 mEq/L (20-26); Blood Gas Modality AF; Blood Gas VT 360 cc
[2020-11-04 11:08] VITALS: BP 100/60
== END 2020-11-04 11:00 | disposition short-term general hospital (02) | DRG 720 ==
LOC: EMEROOARM 11:35 → 2NENU 11:35 → ICNU 10-12 12:12
PROVIDERS: ADMIT Internal Medicine; ATTEND Internal Medicine

== ENCOUNTER 2020-12-25 10:59 | Inpatient (IN) ==
[2020-12-25] MEDS ORDERED: Ondansetron 4 MG/2 ML VIAL IVP ONE (11:21)
[2020-12-25] MEDS ORDERED: Isovue-370 500 ML BOTTLE IVP ONE (11:22)
[2020-12-25] MEDS ORDERED: *HR* FentaNYL (PF) 100 MCG/2 ML VIAL IVP ONE (11:23)
[2020-12-25] MEDS ORDERED: 0.9 % Sodium Chloride 1,000 ML IVC STA (11:32)
[2020-12-25 11:59] LABS: Basophils % 0.8 %; Eosinophils % 0.2 %; Hematocrit 34.6 % (35.3-44.9); Hemoglobin 10.9 g/dL (11.5-15.4); Immature Granulocytes % 0.8 % (0-4); Lymphocytes # 0.4 K/mcL (0.6-4.6); Lymphocytes % 7.3 %; Mean Corpuscular HGB Conc 31.5 g/dL (31.6-35.5); Mean Corpuscular Hemoglobin 30.1 pg (28.0-33.3); Mean Corpuscular Volume 95.6 fL (83.0-100.0); Mean Platelet Volume 8.4 fL (9.4-12.4); Monocytes # 0.1 K/mcL (0.0-1.3); Monocytes % 2.9 %; Neutrophils # 4.2 K/mcL (1.6-8.9); Platelet Count 283 K/mcL (140-400); Red Blood Count 3.62 M/mcL (3.82-4.97); Red Cell Distribution Width 14.6 % (11.5-14.5); White Blood Count 4.8 K/mcL (4.3-11.1)
[2020-12-25 12:19] LABS: Alanine Aminotransferase 33 Units/L (7-52); Albumin 4.1 g/dL (3.5-5.7); Albumin/Globulin Ratio 1.1 (1.1-2.2); Alkaline Phosphatase 78 Units/L (34-104); Amylase 32 Units/L (29-103); Aspartate Amino Transferase 21 Units/L (13-39); BUN/Creatinine Ratio 23 (6-26); Bilirubin,Indirect 0.3 mg/dL (0.0-1.0); Bilirubin,Total 0.3 mg/dL (0.3-1.0); Blood Urea Nitrogen 14 mg/dL (6-20); Calcium 10.4 mg/dL (8.6-10.3); Carbon Dioxide 17 mEq/L (23-29); Chloride 101 mEq/L (98-107); Globulin 3.9 g/dL (2.4-3.5); Glucose 95 mg/dL (70-105); Lipase 22 Units/L (11-82); Osmolality,Calculated 288 (280-300); Potassium 3.8 mEq/L (3.5-5.1); Sodium 139 mEq/L (136-145); Troponin I < 0.03 ng/mL (< 0.04); eGFR For African Americans > 60 (> 60); eGFR For Non-African Americans > 60 (> 60)
[2020-12-25] MEDS ORDERED: Metoclopramide 10 MG/2 ML VIAL IVP ONE (12:29)
[2020-12-25] MEDS ORDERED: Morphine Sulfate 2 MG/ML SYRINGE IVP ONE (12:29)
[2020-12-25] MEDS ORDERED: Naloxone 0.4 MG/ML INJ IVP PRN (14:35)
[2020-12-25] MEDS ORDERED: Ondansetron 4 MG/2 ML VIAL IVP PRN (17:00)
[2020-12-25] MEDS ORDERED: *HR* Promethazine 25 MG/ML VIAL IM PRN (17:00)
[2020-12-25] MEDS: *HR* Heparin 5,000 UNIT/ML VIAL SQ SCH (17:40)
[2020-12-25] MEDS: Ringers Solution, Lactated 1,000 ML IVC SCH (17:41)
[2020-12-25] MEDS: Pantoprazole 40 MG VIAL IVP SCH (17:41)
[2020-12-25] MEDS: *HR* LORazepam 2 MG/ML VIAL IVP PRN (19:44)
[2020-12-25] MEDS: *HR* OxyCODONE Immed Rel 5 MG TABLET PO PRN (19:45)
[2020-12-25] MEDS: rOPINIRole 1 MG TABLET PO SCH (20:49)
[2020-12-25] MEDS: traZODone 50 MG TABLET PO SCH (21:44)
[2020-12-26] MEDS: Ringers Solution, Lactated 1,000 ML IVC SCH (01:43)
[2020-12-26 04:45] LABS: Hematocrit 25.1 % (35.3-44.9); Mean Corpuscular HGB Conc 33.1 g/dL (31.6-35.5); Mean Corpuscular Hemoglobin 30.4 pg (28.0-33.3); Mean Corpuscular Volume 91.9 fL (83.0-100.0); Mean Platelet Volume 8.7 fL (9.4-12.4); Platelet Count 241 K/mcL (140-400); Red Blood Count 2.73 M/mcL (3.82-4.97); Red Cell Distribution Width 14.7 % (11.5-14.5); White Blood Count 4.9 K/mcL (4.3-11.1)
[2020-12-26 04:50] LABS: Hemoglobin 8.3 g/dL (11.5-15.4)
[2020-12-26] MEDS: *HR* Heparin 5,000 UNIT/ML VIAL SQ SCH ×2 (05:17→17:07)
[2020-12-26 05:22] LABS: BUN/Creatinine Ratio 18 (6-26); Blood Urea Nitrogen 9 mg/dL (6-20); Calcium 8.8 mg/dL (8.6-10.3); Carbon Dioxide 21 mEq/L (23-29); Chloride 108 mEq/L (98-107); Glucose 78 mg/dL (70-105); Magnesium 1.5 mg/dL (1.6-2.6); Osmolality,Calculated 284 (280-300); Phosphorous 1.9 mg/dL (2.7-4.5); Potassium 3.2 mEq/L (3.5-5.1); Sodium 138 mEq/L (136-145); eGFR For African Americans > 60 (> 60); eGFR For Non-African Americans > 60 (> 60)
[2020-12-26] MEDS ORDERED: Potassium Chloride Elixir 20 MEQ/15 ML UDC PO ONE (08:49)
[2020-12-26] MEDS: *HR* OxyCODONE Immed Rel 5 MG TABLET PO PRN ×2 (09:26→16:02)
[2020-12-26] MEDS: Pregabalin 75 MG CAPSULE PO SCH (09:53)
[2020-12-26] MEDS: *HR* LORazepam 2 MG/ML VIAL IVP PRN ×2 (09:53→20:19)
[2020-12-26] MEDS: Pantoprazole 40 MG VIAL IVP SCH (09:54)
[2020-12-26] MEDS ORDERED: Scopolamine Patch 1.5 MG PATCH.TD72 TD SCH (14:04)
[2020-12-26] MEDS ORDERED: *HR* Promethazine 25 MG/ML VIAL IM ONE (15:30)
[2020-12-26] MEDS ORDERED: Acetaminophen IV 1,000 MG/100 ML BAG IVPB ONE (19:52)
[2020-12-26] MEDS: traZODone 50 MG TABLET PO SCH (20:18)
[2020-12-26] MEDS: rOPINIRole 1 MG TABLET PO SCH (20:18)
[2020-12-26] MEDS: Budesonide/Formoterol 80/4.5 1 PUFF INH IH SCH (22:39)
[2020-12-27] MEDS: Ondansetron 4 MG/2 ML VIAL IVP PRN ×2 (00:58→20:15)
[2020-12-27] MEDS: *HR* OxyCODONE Immed Rel 5 MG TABLET PO PRN ×3 (00:59→20:14)
[2020-12-27] MEDS: *HR* LORazepam 2 MG/ML VIAL IVP PRN ×2 (02:50→09:45)
[2020-12-27] MEDS: *HR* Heparin 5,000 UNIT/ML VIAL SQ SCH ×2 (05:59→17:26)
[2020-12-27 06:45] LABS: Hematocrit 28.9 % (35.3-44.9); Hemoglobin 9.7 g/dL (11.5-15.4); Mean Corpuscular HGB Conc 33.6 g/dL (31.6-35.5); Mean Corpuscular Hemoglobin 30.6 pg (28.0-33.3); Mean Corpuscular Volume 91.2 fL (83.0-100.0); Mean Platelet Volume 8.8 fL (9.4-12.4); Platelet Count 287 K/mcL (140-400); Red Blood Count 3.17 M/mcL (3.82-4.97); Red Cell Distribution Width 14.6 % (11.5-14.5); White Blood Count 4.9 K/mcL (4.3-11.1)
[2020-12-27 06:56] LABS: BUN/Creatinine Ratio 11 (6-26); Blood Urea Nitrogen 5 mg/dL (6-20); Calcium 9.2 mg/dL (8.6-10.3); Carbon Dioxide 23 mEq/L (23-29); Chloride 101 mEq/L (98-107); Glucose 100 mg/dL (70-105); Magnesium 1.6 mg/dL (1.6-2.6); Osmolality,Calculated 277 (280-300); Phosphorous 1.8 mg/dL (2.7-4.5); Potassium 3.7 mEq/L (3.5-5.1); Sodium 135 mEq/L (136-145); eGFR For African Americans > 60 (> 60); eGFR For Non-African Americans > 60 (> 60)
[2020-12-27 07:03] LABS: % Iron Saturation 25 % (15-50); Iron 58 mcg/dL (50-170); Transferrin 167 mg/dL (203-362)
[2020-12-27 07:13] LABS: Ferritin 120 ng/mL (10-120)
[2020-12-27 07:19] LABS: Folate 19.6 ng/mL (3.0-16.0)
[2020-12-27] MEDS: Pregabalin 75 MG CAPSULE PO SCH (09:23)
[2020-12-27] MEDS: Pantoprazole 40 MG VIAL IVP SCH (09:23)
[2020-12-27] MEDS: Budesonide/Formoterol 80/4.5 1 PUFF INH IH SCH ×2 (09:52→20:24)
[2020-12-27] MEDS: traZODone 50 MG TABLET PO SCH (20:14)
[2020-12-27] MEDS: rOPINIRole 1 MG TABLET PO SCH (20:15)
[2020-12-27] MEDS: Melatonin 3 MG TABLET PO PRN (20:15)
[2020-12-28] MEDS: *HR* LORazepam 2 MG/ML VIAL IVP PRN (00:40)
[2020-12-28] MEDS: *HR* OxyCODONE Immed Rel 5 MG TABLET PO PRN ×3 (05:36→21:33)
[2020-12-28] MEDS: *HR* Heparin 5,000 UNIT/ML VIAL SQ SCH ×2 (05:51→17:52)
[2020-12-28 07:23] LABS: Basophils % 0.7 %; Eosinophils # 0.2 K/mcL (0.0-0.6); Eosinophils % 3.9 %; Hematocrit 30.2 % (35.3-44.9); Immature Granulocytes % 1.1 % (0-4); Lymphocytes # 0.9 K/mcL (0.6-4.6); Lymphocytes % 15.5 %; Mean Corpuscular HGB Conc 33.1 g/dL (31.6-35.5); Mean Corpuscular Hemoglobin 30.4 pg (28.0-33.3); Mean Corpuscular Volume 91.8 fL (83.0-100.0); Mean Platelet Volume 8.7 fL (9.4-12.4); Monocytes # 0.9 K/mcL (0.0-1.3); Monocytes % 15.3 %; Neutrophils # 3.6 K/mcL (1.6-8.9); Platelet Count 274 K/mcL (140-400); Red Blood Count 3.29 M/mcL (3.82-4.97); Red Cell Distribution Width 14.7 % (11.5-14.5); Segmented Neutrophils % 63.5 %; White Blood Count 5.7 K/mcL (4.3-11.1)
[2020-12-28] MEDS: Budesonide/Formoterol 80/4.5 1 PUFF INH IH SCH ×2 (07:27→19:47)
[2020-12-28 07:42] LABS: BUN/Creatinine Ratio 25 (6-26); Blood Urea Nitrogen 10 mg/dL (6-20); Calcium 8.8 mg/dL (8.6-10.3); Carbon Dioxide 31 mEq/L (23-29); Chloride 102 mEq/L (98-107); Glucose 162 mg/dL (70-105); Osmolality,Calculated 287 (280-300); Potassium 3.7 mEq/L (3.5-5.1); Sodium 137 mEq/L (136-145); eGFR For African Americans > 60 (> 60); eGFR For Non-African Americans > 60 (> 60)
[2020-12-28] MEDS: Pregabalin 75 MG CAPSULE PO SCH (08:49)
[2020-12-28] MEDS: Ondansetron 4 MG/2 ML VIAL IVP PRN ×2 (08:53→21:33)
[2020-12-28 09:20] LABS: Estimated Average Glucose 100 mg/dl; Hemoglobin A1C 5.1 %
[2020-12-28] MEDS ORDERED: Isovue-370 500 ML BOTTLE IVP ONE (13:15)
[2020-12-28 13:38] LABS: Bacteria,Urine Many per hpf (None-Few); Bilirubin,Urine Negative (Negative); Blood,Urine Negative (Negative); Clarity,Urine Turbid (Clear); Color,Urine Yellow (Yellow); Glucose,Urine (UA) Normal (Normal); Hyaline Casts,Urine Few per lpf (None Seen); Ketones,Urine Negative (Negative); Leukocyte Esterase,Urine Large (Negative); Mucus,Urine Few per lpf (None-Few); Nitrite,Urine Negative (Negative); Protein,Urine Trace mg/dL (Neg-Trace); Specific Gravity,Urine 1.015 (1.010-1.025); Squamous Epithelial Cell,Urine Few per hpf (None-Few); Urobilinogen,Urine Normal (Normal); WBC,Urine TNTC per hpf (0-3)
[2020-12-28] MEDS: Metoclopramide 10 MG/2 ML VIAL IVP SCH ×3 (15:47→23:59)
[2020-12-28] MEDS: Pantoprazole 40 MG VIAL IVP SCH ×2 (15:48→21:33)
[2020-12-28] MEDS ORDERED: *HR* HYDROmorphone (PF) 1 MG/ML SYRINGE IVP ONE (16:13)
[2020-12-28] MEDS: traZODone 50 MG TABLET PO SCH (22:26)
[2020-12-28] MEDS: rOPINIRole 1 MG TABLET PO SCH (22:27)
[2020-12-29] MEDS: *HR* OxyCODONE Immed Rel 5 MG TABLET PO PRN ×4 (02:51→20:45)
[2020-12-29] MEDS: Metoclopramide 10 MG/2 ML VIAL IVP SCH ×3 (05:28→16:57)
[2020-12-29] MEDS: *HR* Heparin 5,000 UNIT/ML VIAL SQ SCH ×3 (05:28→18:23)
[2020-12-29 07:07] LABS: Hematocrit 30.2 % (35.3-44.9); Hemoglobin 9.6 g/dL (11.5-15.4); Mean Corpuscular HGB Conc 31.8 g/dL (31.6-35.5); Mean Corpuscular Hemoglobin 29.9 pg (28.0-33.3); Mean Corpuscular Volume 94.1 fL (83.0-100.0); Mean Platelet Volume 8.8 fL (9.4-12.4); Platelet Count 264 K/mcL (140-400); Red Blood Count 3.21 M/mcL (3.82-4.97); Red Cell Distribution Width 15.4 % (11.5-14.5); White Blood Count 6.3 K/mcL (4.3-11.1)
[2020-12-29 07:26] LABS: BUN/Creatinine Ratio 41 (6-26); Blood Urea Nitrogen 18 mg/dL (6-20); Calcium 8.8 mg/dL (8.6-10.3); Carbon Dioxide 30 mEq/L (23-29); Chloride 103 mEq/L (98-107); Glucose 114 mg/dL (70-105); Magnesium 1.8 mg/dL (1.6-2.6); Osmolality,Calculated 285 (280-300); Potassium 4.5 mEq/L (3.5-5.1); Sodium 136 mEq/L (136-145); eGFR For African Americans > 60 (> 60); eGFR For Non-African Americans > 60 (> 60)
[2020-12-29] MEDS: cefTRIAXone 1,000 MG in Water for inj. (sterile) 10 ML IVP SCH ×2 (09:14→09:15)
[2020-12-29] MEDS: Insulin LISPRO 300 UNITS/3 ML VIAL SUBQ SCH ×4 (09:15→20:47)
[2020-12-29] MEDS: Ondansetron 4 MG/2 ML VIAL IVP PRN (09:16)
[2020-12-29] MEDS: Pantoprazole 40 MG VIAL IVP SCH (09:16)
[2020-12-29] MEDS: Pregabalin 75 MG CAPSULE PO SCH (09:16)
[2020-12-29] MEDS ORDERED: 0.9 % Sodium Chloride 1,000 ML ONE (09:23)
[2020-12-29] MEDS ORDERED: 0.9 % Sodium Chloride 1,000 ML IVC ONE (09:24)
[2020-12-29] MEDS ORDERED: *HR* Promethazine 25 MG/ML VIAL IM ONE (11:01)
[2020-12-29] MEDS: Budesonide/Formoterol 80/4.5 1 PUFF INH IH SCH ×2 (11:31→22:07)
[2020-12-29] MEDS: *HR* LORazepam 2 MG/ML VIAL IVP PRN ×2 (13:18→20:41)
[2020-12-29 18:14] LABS: Hemoglobin 10.1 g/dL (11.5-15.4); Mean Corpuscular HGB Conc 31.6 g/dL (31.6-35.5); Mean Corpuscular Hemoglobin 29.8 pg (28.0-33.3); Mean Corpuscular Volume 94.4 fL (83.0-100.0); Mean Platelet Volume 8.8 fL (9.4-12.4); Platelet Count 307 K/mcL (140-400); Red Blood Count 3.39 M/mcL (3.82-4.97); Red Cell Distribution Width 15.7 % (11.5-14.5); White Blood Count 7.5 K/mcL (4.3-11.1)
[2020-12-29] MEDS ORDERED: Ringers Solution, Lactated 1,000 ML IV SCH (18:30)
[2020-12-29] MEDS: traZODone 50 MG TABLET PO SCH (20:45)
[2020-12-30] MEDS: *HR* Heparin 5,000 UNIT/ML VIAL SQ SCH ×3 (00:17→18:25)
[2020-12-30] MEDS: Insulin LISPRO 300 UNITS/3 ML VIAL SUBQ SCH ×5 (00:18→18:30)
[2020-12-30] MEDS: Metoclopramide 10 MG/2 ML VIAL IVP SCH ×5 (00:18→23:24)
[2020-12-30] MEDS: rOPINIRole 1 MG TABLET PO SCH ×2 (00:29→20:19)
[2020-12-30] MEDS: Pantoprazole 40 MG VIAL IVP SCH ×3 (00:29→20:18)
[2020-12-30 03:26] LABS: Basophils # 0.1 K/mcL (0.0-0.2); Basophils % 0.8 %; Eosinophils # 0.5 K/mcL (0.0-0.6); Eosinophils % 8.4 %; Hematocrit 25.5 % (35.3-44.9); Immature Granulocytes % 2.9 % (0-4); Lymphocytes # 1.4 K/mcL (0.6-4.6); Lymphocytes % 23.7 %; Mean Corpuscular HGB Conc 32.5 g/dL (31.6-35.5); Mean Corpuscular Hemoglobin 30.6 pg (28.0-33.3); Mean Corpuscular Volume 94.1 fL (83.0-100.0); Mean Platelet Volume 9.2 fL (9.4-12.4); Monocytes # 0.8 K/mcL (0.0-1.3); Monocytes % 13.8 %; Platelet Count 256 K/mcL (140-400); Red Blood Count 2.71 M/mcL (3.82-4.97); Red Cell Distribution Width 15.8 % (11.5-14.5); Segmented Neutrophils % 50.4 %; White Blood Count 5.9 K/mcL (4.3-11.1)
[2020-12-30 03:27] LABS: Hemoglobin 8.3 g/dL (11.5-15.4)
[2020-12-30 03:45] LABS: BUN/Creatinine Ratio 32 (6-26); Blood Urea Nitrogen 13 mg/dL (6-20); Calcium 8.6 mg/dL (8.6-10.3); Carbon Dioxide 30 mEq/L (23-29); Chloride 105 mEq/L (98-107); Glucose 98 mg/dL (70-105); Osmolality,Calculated 286 (280-300); Potassium 4.3 mEq/L (3.5-5.1); Sodium 138 mEq/L (136-145); eGFR For African Americans > 60 (> 60); eGFR For Non-African Americans > 60 (> 60)
[2020-12-30] MEDS: *HR* OxyCODONE Immed Rel 5 MG TABLET PO PRN ×5 (05:43→23:24)
[2020-12-30] MEDS: Ondansetron 4 MG/2 ML VIAL IVP PRN ×2 (05:44→20:21)
[2020-12-30] MEDS: Budesonide/Formoterol 80/4.5 1 PUFF INH IH SCH ×2 (07:21→20:05)
[2020-12-30] MEDS: *HR* LORazepam 2 MG/ML VIAL IVP PRN ×2 (09:06→18:28)
[2020-12-30] MEDS: cefTRIAXone 1,000 MG in Water for inj. (sterile) 10 ML IVP SCH (09:06)
[2020-12-30] MEDS: Pregabalin 75 MG CAPSULE PO SCH (09:07)
[2020-12-30] MEDS ORDERED: *HR* Propofol 200 MG/20 ML VIAL IVP ONE (14:32)
[2020-12-30] MEDS ORDERED: Lidocaine -MPF 2% 5 ML VIAL ONE (14:32)
[2020-12-30] MEDS: Apixaban 5 MG TABLET PO SCH (20:17)
[2020-12-30] MEDS: traZODone 50 MG TABLET PO SCH (20:20)
[2020-12-31] MEDS: Ondansetron 4 MG/2 ML VIAL IVP PRN ×3 (04:13→17:47)
[2020-12-31] MEDS: *HR* OxyCODONE Immed Rel 5 MG TABLET PO PRN ×3 (04:15→17:48)
[2020-12-31 05:06] LABS: Hemoglobin 9.7 g/dL (11.5-15.4); Mean Corpuscular HGB Conc 33.4 g/dL (31.6-35.5); Mean Corpuscular Hemoglobin 31.1 pg (28.0-33.3); Mean Corpuscular Volume 92.9 fL (83.0-100.0); Mean Platelet Volume 9.1 fL (9.4-12.4); Platelet Count 309 K/mcL (140-400); Red Blood Count 3.12 M/mcL (3.82-4.97); Red Cell Distribution Width 15.9 % (11.5-14.5); White Blood Count 6.8 K/mcL (4.3-11.1)
[2020-12-31] MEDS: Metoclopramide 10 MG/2 ML VIAL IVP SCH ×2 (05:54→10:24)
[2020-12-31] MEDS: Insulin LISPRO 300 UNITS/3 ML VIAL SUBQ SCH ×6 (06:12→21:53)
[2020-12-31] MEDS: Budesonide/Formoterol 80/4.5 1 PUFF INH IH SCH ×2 (07:30→19:42)
[2020-12-31] MEDS: Pantoprazole 40 MG VIAL IVP SCH (10:24)
[2020-12-31] MEDS: *HR* LORazepam 2 MG/ML VIAL IVP PRN ×2 (10:24→18:27)
[2020-12-31] MEDS: cefTRIAXone 1,000 MG in Water for inj. (sterile) 10 ML IVP SCH (10:24)
[2020-12-31] MEDS: Pregabalin 75 MG CAPSULE PO SCH (10:25)
[2020-12-31] MEDS: Apixaban 5 MG TABLET PO SCH ×2 (10:25→21:44)
[2020-12-31] MEDS: Pyridoxine (B-6) 50 MG TABLET PO SCH (14:34)
[2020-12-31] MEDS ORDERED: *HR* OxyCODONE Immed Rel 5 MG TABLET PO PRN (15:56)
[2020-12-31] MEDS: Metoclopramide 10 MG/10 ML UD.LIQ PO SCH ×2 (17:47→23:03)
[2020-12-31] MEDS: traZODone 50 MG TABLET PO SCH (21:43)
[2020-12-31] MEDS: rOPINIRole 1 MG TABLET PO SCH (21:44)
[2021-01-01] MEDS: Insulin LISPRO 300 UNITS/3 ML VIAL SUBQ SCH ×7 (00:23→23:35)
[2021-01-01] MEDS: Ondansetron 4 MG/2 ML VIAL IVP PRN ×2 (02:52→08:55)
[2021-01-01] MEDS: *HR* OxyCODONE Immed Rel 5 MG TABLET PO PRN ×3 (02:52→20:38)
[2021-01-01] MEDS: Metoclopramide 10 MG/10 ML UD.LIQ PO SCH ×4 (05:06→23:42)
[2021-01-01] MEDS: Budesonide/Formoterol 80/4.5 1 PUFF INH IH SCH ×2 (07:44→20:32)
[2021-01-01] MEDS: Pregabalin 75 MG CAPSULE PO SCH (08:55)
[2021-01-01] MEDS: Pyridoxine (B-6) 50 MG TABLET PO SCH (08:55)
[2021-01-01] MEDS: Apixaban 5 MG TABLET PO SCH ×2 (08:55→20:34)
[2021-01-01] MEDS: *HR* LORazepam 2 MG/ML VIAL IVP PRN ×2 (09:12→21:34)
[2021-01-01 09:52] LABS: BUN/Creatinine Ratio 24 (6-26); Blood Urea Nitrogen 10 mg/dL (6-20); Carbon Dioxide 30 mEq/L (23-29); Chloride 100 mEq/L (98-107); Glucose 173 mg/dL (70-105); Magnesium 1.6 mg/dL (1.6-2.6); Osmolality,Calculated 283 (280-300); Phosphorous 3.7 mg/dL (2.7-4.5); Potassium 4.1 mEq/L (3.5-5.1); Sodium 135 mEq/L (136-145); eGFR For African Americans > 60 (> 60); eGFR For Non-African Americans > 60 (> 60)
[2021-01-01] MEDS: rOPINIRole 1 MG TABLET PO SCH (20:34)
[2021-01-01] MEDS: traZODone 50 MG TABLET PO SCH (20:35)
[2021-01-02] MEDS: Insulin LISPRO 300 UNITS/3 ML VIAL SUBQ SCH ×6 (03:29→23:39)
[2021-01-02 04:00] LABS: Hematocrit 30.1 % (35.3-44.9); Hemoglobin 9.5 g/dL (11.5-15.4); Mean Corpuscular HGB Conc 31.6 g/dL (31.6-35.5); Mean Corpuscular Hemoglobin 29.7 pg (28.0-33.3); Mean Corpuscular Volume 94.1 fL (83.0-100.0); Mean Platelet Volume 8.5 fL (9.4-12.4); Platelet Count 315 K/mcL (140-400); Red Cell Distribution Width 15.5 % (11.5-14.5); White Blood Count 7.6 K/mcL (4.3-11.1)
[2021-01-02 04:19] LABS: BUN/Creatinine Ratio 28 (6-26); Blood Urea Nitrogen 13 mg/dL (6-20); Calcium 9.3 mg/dL (8.6-10.3); Carbon Dioxide 29 mEq/L (23-29); Chloride 100 mEq/L (98-107); Glucose 125 mg/dL (70-105); Magnesium 2.4 mg/dL (1.6-2.6); Osmolality,Calculated 284 (280-300); Phosphorous 4.1 mg/dL (2.7-4.5); Potassium 4.4 mEq/L (3.5-5.1); Sodium 136 mEq/L (136-145); eGFR For African Americans > 60 (> 60); eGFR For Non-African Americans > 60 (> 60)
[2021-01-02] MEDS: Metoclopramide 10 MG/10 ML UD.LIQ PO SCH ×4 (05:52→23:46)
[2021-01-02] MEDS: Budesonide/Formoterol 80/4.5 1 PUFF INH IH SCH ×2 (08:08→20:08)
[2021-01-02] MEDS: Pregabalin 75 MG CAPSULE PO SCH (09:47)
[2021-01-02] MEDS: Pyridoxine (B-6) 50 MG TABLET PO SCH (09:47)
[2021-01-02] MEDS: Apixaban 5 MG TABLET PO SCH ×2 (09:47→19:45)
[2021-01-02] MEDS: Multivitamin Liquid 15 ML UDC GTUBE SCH (09:48)
[2021-01-02] MEDS: *HR* OxyCODONE Immed Rel 5 MG TABLET PO PRN ×2 (11:39→19:45)
[2021-01-02] MEDS: rOPINIRole 1 MG TABLET PO SCH (19:44)
[2021-01-02] MEDS: traZODone 50 MG TABLET PO SCH (19:45)
[2021-01-02] MEDS: Melatonin 3 MG TABLET PO PRN (19:59)
[2021-01-03] MEDS: Metoclopramide 10 MG/10 ML UD.LIQ PO SCH (04:46)
[2021-01-03] MEDS: *HR* LORazepam 2 MG/ML VIAL IVP PRN (04:56)
[2021-01-03] MEDS: Insulin LISPRO 300 UNITS/3 ML VIAL SUBQ SCH ×2 (04:59→08:21)
[2021-01-03 05:17] LABS: Hemoglobin 10.1 g/dL (11.5-15.4); Mean Corpuscular HGB Conc 31.6 g/dL (31.6-35.5); Mean Corpuscular Hemoglobin 30.4 pg (28.0-33.3); Mean Corpuscular Volume 96.4 fL (83.0-100.0); Mean Platelet Volume 8.8 fL (9.4-12.4); Platelet Count 335 K/mcL (140-400); Red Blood Count 3.32 M/mcL (3.82-4.97); Red Cell Distribution Width 15.5 % (11.5-14.5); White Blood Count 7.4 K/mcL (4.3-11.1)
[2021-01-03 05:17] LABS: VBG HCO3 28 mEq/L (21-27); VBG PCO2 43 mmHg (41-51); VBG PH 7.41 pH Units (7.32-7.42); VBG PO2 281 mmHg (25-50)
[2021-01-03 05:36] LABS: BUN/Creatinine Ratio 34 (6-26); Blood Urea Nitrogen 15 mg/dL (6-20); Calcium 9.6 mg/dL (8.6-10.3); Carbon Dioxide 27 mEq/L (23-29); Chloride 99 mEq/L (98-107); Glucose 187 mg/dL (70-105); Magnesium 1.6 mg/dL (1.6-2.6); Osmolality,Calculated 284 (280-300); Phosphorous 4.5 mg/dL (2.7-4.5); Potassium 4.2 mEq/L (3.5-5.1); Sodium 134 mEq/L (136-145); eGFR For African Americans > 60 (> 60); eGFR For Non-African Americans > 60 (> 60)
[2021-01-03 07:30] VITALS: BP 111/74
[2021-01-03] MEDS: Budesonide/Formoterol 80/4.5 1 PUFF INH IH SCH (07:37)
[2021-01-03] MEDS: Pregabalin 75 MG CAPSULE PO SCH (08:20)
[2021-01-03] MEDS: Apixaban 5 MG TABLET PO SCH (08:21)
[2021-01-03] MEDS: Multivitamin Liquid 15 ML UDC GTUBE SCH (08:21)
[2021-01-03] MEDS: Pyridoxine (B-6) 50 MG TABLET PO SCH (08:21)
== END 2021-01-03 12:00 | disposition home health service (06) | DRG 254 ==
LOC: EMEROOARM 10:59 → 3ANU 10:59 → SUATTDRO 14:37 → 3ANU 15:20 → SUATTDRO 12-29 17:00
PROVIDERS: ADMIT Internal Medicine; ATTEND Internal Medicine